=== PATIENT | male | born 1940 | race Caucasian/White ===

== ENCOUNTER 2019-08-18 12:49 | Inpatient (IN) ==
--- OUTSIDE RECORDS SUMMARY | 2019-08-18 12:52 | External Medical Summary | Continuity of Care Document ---
:1940 Author Name Deyvi Villa, Provider Address Unavailable Unavailable , Care Team Providers Name Role Phone Srinath Giron DO Unavailable [email or web address] Unavailable Unavailable Assessments Assessed Problems:Spider bite woundAftercare following surgery Problems Spider bite wound (989.5) (T63.301A) Aftercare following surgery (V58.89) (Z48.89) Abscess or cellulitis of chest wall (682.2) Spider bite (989.5) (T63.301A) Hypertension (401.9) (I10) Allergies and Adverse Reactions Vioxx (Allergy) Medications Lisinopril-hydroCHLOROthiazide 10-12.5 MG Oral Tablet; TAKE 1 TABLET DAILY. Start: 13-Nov-2017 Refills: 0 Aspirin Low Dose 81 MG Oral Tablet Delay ed Release; TAKE 1 TABLET DAILY DIRECTED. Start: 13-Nov-2017 Refills: 0 Multivitamin Adult Oral Tablet; TAKE 1 TABLET DAILY. Start: 13-Nov-2017 Refills: 0 Felodipine ER 5 MG Oral Tablet Extended Release 24 Hour; TAKE 1 TABLET ONCE DAILY. Start: 13-Nov-2017 Refills: 0 Procedures History of Knee Replacement Status: Comp leted History of skin debridement Status: Comp leted 13-Nov-2017 0:00 Immunizations Immunizations not documented Family History Mother Family history of malignant neoplasm (V16.9) (Z80.9) Status: Active Family history of diabetes mellitus (V18.0) (Z83.3) Status: Active Family history of cerebrovascular accident (CVA) (V17.1) (Z8 2.3) Status: Active Father Family history of cardiac disorder (V17.49) (Z82.49) Status: Active Social History - Smoking Status Never smoked tobacco Plan of Treatment Planned Observations Planned Goals not documented Results No Known Results Results not documented Encounters Appointment; Jeff Mcelroy M.D. 14-Nov-2017 13:30 Encounter Diagnosis: Problem not documented Appointment; Srinath Giron DO 13-Nov-2017 11:00 Encounter Diagnosis: Problem not documented Appointment; Srinath Giron, DO 20-Nov-2017 9:00 Encounter Diagnosis: Problem not documented
--- OUTSIDE RECORDS SUMMARY | 2019-08-18 12:52 | External Medical Summary | Continuity of Care Document ---
:1940 Author Name Deyvi Villa, Provider Address Unavailable Unavailable , Care Team Providers Name Role Phone Srinath Giron DO Unavailable [email or web address] OLSEN Unavailable Unavailable Assessments Assessed Problems:Spider bite woundAftercare following surgery Problems Hypertension (401.9) (I10) Spider bite (989.5) (T63.301A) Abscess or cellulitis of chest wall (682.2) Aftercare following surgery (V58.89) (Z48.89) Spider bite wound (989.5) (T63.301A) Allergies and Adverse Reactions Vioxx (Allergy) Medications [...]
--- NOTE | 2019-08-18 14:22 | Emergency Department Note ---
History of Present Illness General Chief complaint: Shortness of Breath/Dyspnea Stated complaint: DR MILIAN-FLUID IN LEGS AND SOB Time Seen by Provider: 08/18/19 13:53 Source: patient Mode of arrival: ambulatory Limitations: no limitations History of Present Illness Maximum Pain Intensity: 0 This patient comes in after being sent over from his doctor's office after having a new onset A. fib. He has had shortness of breath mostly dyspnea on exertion and bilateral lower extremity edema for the last week and a half. His doctor started on Lasix last Sunday he thinks it has caused some decrease in his leg swelling a little bit but still remains swollen. His breathing has gotten better. He has had no fall or trauma. No history of A. fib or CHF prior. No fever or chills or cough no COVID exposures or flulike symptoms. Home Medications Home Medications Medication Instructions Recorded Confirmed Type lisinopril-hydrochlorothiazide 1 tab PO DAILY #0 02/13/11 08/18/19 History albuterol sulfate 2 puff INHALATION Q4 PRN 08/18/19 08/18/19 History aspirin [Aspir-81] 81 mg PO DAILY 08/18/19 08/18/19 History felodipine 5 mg PO DAILY 08/18/19 08/18/19 History fluticasone propionate [Flovent 2 puff INHALATION BID 08/18/19 08/18/19 History HFA] furosemide [Lasix] 40 mg PO DAILY 08/18/19 08/18/19 History multivitamin 1 tab PO DAILY 08/18/19 08/18/19 History Allergies Allergy/AdvReac Type Severity Reaction Status Date / Time rofecoxib Allergy Unknown Unknown Verified 08/18/19 15:49 Past Med/Surg History Medical History Asthma (Chronic) Bronchitis (Resolved) Cellulitis of chest wall (Acute) Failure of outpatient treatment (Acute) HTN (hypertension) (Chronic) Family History Other No pertinent family history Social History Preferred Language: Portuguese Communication Ability: Effective Installation Manager Required: No Beliefs That Will Affect Care: None Current Living Situation: Spouse Feels Safe at Home: Yes Smoking Status: Former smoker Second Hand Exposure: No ; Hx Alcohol Use: No Hx Substance Use: No Review of Systems A total of 10 systems reviewed and were otherwise negative Physical Exam Vital Signs Vital Signs - 24 hr 08/18/19 12:53 08/18/19 15:15 08/18/19 16:43 Temperature 36.7 C Temperature Source Oral Pulse Rate 83 78 Pulse Rate [Right Finger] 76 68 Pulse Rhythm Regular Pulse Strength Normal Respiratory Rate 18 16 20 Respiratory Effort / Characteristics Non-Labored Spontaneous Non-Labored Non-Labored Respiratory Depth Normal Normal Normal Respiratory Pattern Regular Blood Pressure 146/73 H Blood Pressure [Right Arm] 141/94 H 157/86 H Blood Pressure Mean 97 Blood Pressure Mean [Right Arm] 109 109 Blood Pressure Position Sitting Pulse Oximetry 95 95 96 Oxygen Delivery Method Room Air Room Air Room Air Sepsis Recent Fever Within 48 Hours No Sepsis New/Unexplained Change in Mental Status No Sepsis Action Taken by Nursing No Action Required General: Well developed well nourished older male who appears in no acute distress, breathing comfortably on room air. Normal speech HEENT: Normal cephalic atraumatic. Pupils are equal round and reactive to light. Extraocular movements are intact. Oropharynx is pink with moist mucous membranes. No swelling of the mouth lips or tongue. Neck: Supple with a midline trachea. No meningeal signs or stiffness, no JVD or bruits. No Stridor. Chest: Clear to auscultation bilaterally. No wheezes or rhonchi. No increased work of breathing. Heart: Irregular regular rate and rhythm without murmurs or gallops. Not tach ycardic. Abdomen: Soft nontender, nondistended without rebound guarding or rigidity. Extremities: No cyanosis clubbing or edema. No calf tenderness or assymetry Spine/Back. Non tender to palpation. No CVA tenderness Skin: Good turgor without rashes. Neurologic exam: Cranial nerves two through 12 are intact. Motor and sensation are intact and symmetrical throughout. Course Administered Medications Discontinued Medications Furosemide (Lasix) 20 mg IV NOW STA Stop: 08/18/19 16:46 Last Admin: 08/18/19 18:14 Dose: 20 mg Documented by: [id number] Medical Decision Making Differential Diagnosis CHF, A. fib, acute coronary syndrome, electrolyte or metabolic abnormality, pulmonary disease Medical Records Attestation: I reviewed the patient's medical records. Home Medications Current Medication List: was personally reviewed by me Laboratory Data Attestation: I reviewed the patient's lab results. Result diagrams: 08/18/19 15:20 08/18/19 15:20 Lab Results 08/18/19 08/18/19 08/18/19 Range/Units 15:20 15:20 15:20 WBC 8.96 (4.8-10.8) K/uL RBC 5.11 (4.7-6.1) M/uL Hgb 15.9 (14.0-18.0) g/dL Hct 46.0 (42-52) % MCV 90.0 (80-100) fL MCH 31.1 (25-34) pg MCHC 34.6 (32-36) g/dL RDW Std Deviation 45.4 (36.4-46.3) fL RDW Coeff of Keanu 13.8 (11.5-14.5) % Plt Count 208 (130-400) K/uL MPV 10.0 (7.4-10.4) fL Immature Gran % (Auto) 0.6 % Neut % (Auto) 65.8 % Lymph % (Auto) 21.5 % Clinch % (Auto) 10.9 % Eos % (Auto) 1.0 % Baso % (Auto) 0.2 % Immature Gran # (Auto) 0.05 H (0.00-0.02) K/uL Neut # (Auto) 5.89 (1.4-6.5) K/uL Lymph # (Auto) 1.93 (1.2-3.4) K/uL Clinch # (Auto) 0.98 H (0.11-0.59) K/uL Eos # (Auto) 0.09 (0-0.5) K/uL Baso # (Auto) 0.02 (0-0.2) K/uL PT 11.4 (9.0-12.0) Seconds INR 1.1 (0.9-1.1) APTT 30.0 (21.0-31.0) Seconds PTT Ratio 1.1 Sodium 141 (136-145) mmol/L Potassium 3.8 (3.5-5.1) mmol/L Chloride 105 (98-107) mmol/L Carbon Dioxide 30 (21-32) mmol/L Anion Gap 6.0 (3-11) BUN 9 (7-18) mg/dl Creatinine 0.79 (0.6-1.4) mg/dl Est Cr Clr Drug Dosing 112.4 ml/min Est GFR ( Amer) 100.4 Est GFR (Non-Af Amer) 86.6 BUN/Creatinine Ratio 11.2 (10-20) Glucose 97 (70-99) mg/dl Calcium 8.9 (8.5-10.1) mg/dl Total Bilirubin 0.8 (0.2-1) mg/dl AST 16 (15-37) U/L ALT 36 (12-78) U/L Alkaline Phosphatase 109 (45-117) U/L Troponin I < 0.015 (0-0.045) ng/ml NT-Pro-B Natriuret Pep 392 (0-1800) pg/ml Total Protein 7.6 (6.4-8.2) gm/dl Albumin 3.7 (3.4-5.0) gm/dl Globulin 3.9 (2.5-4.0) gm/dl Albumin/Globulin Ratio 0.9 (0.9-2) Lipase 80 (73-393) U/L Imaging Data Attestation: I personally reviewed and interpreted this imaging study as fol lows: My Impression: Chest x-ray: Cardiomegaly without overt CHF. ECG Data Attestation: I personally reviewed and interpreted this ECG as follows: Indication: + SOB/dyspnea Rate (beats per minute): 92 Rhythm: + atrial fibrillation ECG Intervals/blocks: + Right Bundle branch block ECG Lynn: + Left axis deviation ECG ST segments: + Nonspecific ST abnormalities Comparison [facility]: [facility] Change: no significant change MDM Narrative This patient comes in scribed above. He has new onset A. fib and lower extremity edema/CHF. He was placed on a lead generation representative and before. IV access was established. EKG and chest x-ray was obtained. Extensive work-up was obtained. He was reassessed frequently. EKG shows a rate controlled A. fib. His initial troponin is negative. Chest x-ray shows cardiomegaly without overt CHF. He has no significant lecture light or metabolic abnormalities. He was given Lasix 20 mg IV. He is asymptomatic sitting here in the ER. Given his new onset A. fib and CHF I do think he needs to be admitted/observe for further inpatient treatment evaluation for cardiac disease. I have consulted the [facility] hospitalist to see him in the ER for these measures. Continuous cardiac monitoring: Due to the patient's new onset A. fib as well as CHF,he was placed on continuous lead generation representative. An order was placed in the computer. He was noted to be in A. fib with a rate controlled rate of 83 initially. Impression & Plan Atrial fibrillation, Bilateral edema of lower extremity, CHAVARRIA (dyspnea on exertion), HTN (hypertension) Discharge Plan Visit Data *Final* Discharge Date/Time: 08/18/19 19:09 Chief Complaint: Shortness of Breath/Dyspnea Stated Complaint: DR REF-FLUID IN LEGS AND SOB ED Provider: Israel Bhakta Discharge Problem: Atrial fibrillation, Bilateral edema of lower extremity, CHAVARRIA (dyspnea on exertion), HTN (hypertension) Patient Disposition: Admitted As Inpatient Discharge Instructions Interventions: ED Discharge Assessment Last Done: 08/18/19 19:09 Discharge Problem: Atrial fibrillation Qualifiers: Atrial fibrillation type: unspecified Qualified Code(s): I48.91 - Unspecified atrial fibrillation HTN (hypertension) Qualifiers: Hypertension type: unspecified Qualified Code(s): I10 - Essential (primary) hypertension
--- NOTE | 2019-08-18 15:34 | Electrocardiogram Report ---
Test Reason : Blood Pressure : / mmHG Vent. Rate : 092 BPM Atrial Rate : 060 BPM P-R Int : 000 ms QRS Dur : 152 ms QT Int : 408 ms P-R-T Axes : 000 -79 057 degrees QTc Int : 504 ms Atrial fibrillation Right bundle branch block Left anterior fascicular block Bifascicular block Cannot rule out Inferior infarct Abnormal ECG When compared with ECG of 13-FEB-2011 09:56, Atrial fibrillation has replaced Sinus rhythm Right bundle branch block is now Present Confirmed by Charan Tavraes ([id number]) on 08/18/2019 3:33:34 PM Referred By: Mitchell Nichols Confirmed By:Harvinder Tavares
[2019-08-18 15:36] LABS: Basophils # (auto) 0.02 K/uL (0-0.2); Basophils % (auto) 0.2 %; Eosinophils # (auto) 0.09 K/uL (0-0.5); Hemoglobin 15.9 g/dL (14.0-18.0); Immature Granulocytes # (auto) 0.05 K/uL (0.00-0.02); Immature Granulocytes % (auto) 0.6 %; Lymphocytes # (auto) 1.93 K/uL (1.2-3.4); Lymphocytes % (auto) 21.5 %; Mean Corpuscular Hemoglobin 31.1 pg (25-34); Mean Corpuscular Hgb Conc 34.6 g/dL (32-36); Monocytes # (auto) 0.98 K/uL (0.11-0.59); Monocytes % (auto) 10.9 %; Neutrophils # (auto) 5.89 K/uL (1.4-6.5); Neutrophils % (auto) 65.8 %; Platelet Count 208 K/uL (130-400); RDW Coefficient of Variation 13.8 % (11.5-14.5); RDW Standard Deviation 45.4 fL (36.4-46.3); Red Blood Count 5.11 M/uL (4.7-6.1); White Blood Count 8.96 K/uL (4.8-10.8)
[2019-08-18 15:49] LABS: INR 1.1 (0.9-1.1); Partial Thromboplastin Ratio 1.1; Prothrombin Time 11.4 Seconds (9.0-12.0)
[2019-08-18 15:53] LABS: Alanine Aminotransferase 36 U/L (12-78); Albumin Level 3.7 gm/dl (3.4-5.0); Aspartate Aminotransferase 16 U/L (15-37); BUN Creatinine Ratio 11.2 (10-20); Blood Urea Nitrogen 9 mg/dl (7-18); Calcium 8.9 mg/dl (8.5-10.1); Carbon Dioxide 30 mmol/L (21-32); Chloride 105 mmol/L (98-107); Creatinine Clr Calc Pharmacy 112.4 ml/min; Est GFR (African American) 100.4; Est GFR (Non-African American) 86.6; Glucose 97 mg/dl (70-99); Lipase 80 U/L (73-393); Potassium 3.8 mmol/L (3.5-5.1); Sodium 141 mmol/L (136-145)
[2019-08-18 15:58] LABS: Albumin Globulin Ratio 0.9 (0.9-2); Alkaline Phosphatase 109 U/L (45-117); Bilirubin,Total 0.8 mg/dl (0.2-1); Globulin 3.9 gm/dl (2.5-4.0); NT Pro B Type Natriuretic Pept 392 pg/ml (0-1800); Total Protein 7.6 gm/dl (6.4-8.2); Troponin I < 0.015 ng/ml (0-0.045)
--- NOTE | 2019-08-18 16:26 | XRay Report ---
SINGLE VIEW CHEST CLINICAL HISTORY: Atypical chest pain. FINDINGS: 2 AP, portable, upright chest radiographs are compared to study dated 11/04/2017. The examina tion is degraded by portable technique and patient rotation. The heart is enlarged noting atheroscler otic calcification of the thoracic aorta. There is prominence of the central pulmonary vessels. Scarr ing/atelectasis is noted at the lung bases. No airspace consolidation or large pleural effusion is id entified. No pneumothorax is seen. The skeletal structures are osteopenic. The bony thorax is grossly intact. IMPRESSION: 1. Cardiomegaly with prominence of the central pulmonary vessels. Correlate clinically for evidence o f mild congestion. 2. No airspace consolidation or large pleural effusion is identified. ACT 112: Negative or not required by law. Electronically signed by: Дмитрий Browne M.D. 08/18/2019 3:13 PM
[2019-08-18] MEDS ORDERED: FUROSEMIDE 40 MG/4 ML VIAL IV STA (16:45)
--- NOTE | 2019-08-18 18:27 | History & Physical Report ---
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 Start heparin drip for now. N.p.o. past midnight for cardiology evaluation and possible cardioversion if needed Get A1c and lipid panel Get TSH Get 2D Echo (3) HTN (hypertension): Continue home lisinopril for now Blood pressures currently controlled Monitor (4) COPD (chronic obstructive pulmonary disease): Stable. Continue inhalers. Next (5) DVT prophylaxis: On heparin drip as noted above. Neck History of Present Illness 79-year-old man with history of hypertension, dyslipidemia, obesity, COPD who presented with shortness of breath and leg swelling for over 1 week. Was initially seen in PCPs office on 08/13/2019 and treated for bronchitis and also started on Lasix 20 mg daily. Patient was reevaluated by PCP today, still had leg swelling and was noted to have A. fib on EKG and was sent to the ER for further evaluation. Patient reports dry cough, dyspnea on exertion. Denies any chest pain, orthopnea, PND Reports the leg swelling has been worsening. Denies any abdominal distention, pain or easy satiety Denies any fevers, chills, nausea vomiting On presentation to the ER, blood pressure is 146/73, heart rate was 83. EKG showed atrial fibrillation, rate controlled. Primary Care Provider: Mitchell Nichols DO Allergies Allergy/AdvReac Type Severity Reaction Status Date / Time rofecoxib Allergy Unknown Unknown Verified 08/18/19 15:49 Home Medications Home Medications Medication Instructions Recorded Confirmed Type lisinopril-hydrochlorothiazide 1 tab PO DAILY #0 02/13/11 08/18/19 History albuterol sulfate 2 puff INHALATION Q4 PRN 08/18/19 08/18/19 History aspirin [Aspir-81] 81 mg PO DAILY 08/18/19 08/18/19 History felodipine 5 mg PO DAILY 08/18/19 08/18/19 History fluticasone propionate [Flovent 2 puff INHALATION BID 08/18/19 08/18/19 History HFA] furosemide [Lasix] 40 mg PO DAILY 08/18/19 08/18/19 History multivitamin 1 tab PO DAILY 08/18/19 08/18/19 History Past Med/Surg History Medical History Asthma (Chronic) Bronchitis (Resolved) Cellulitis of chest wall (Acute) Failure of outpatient treatment (Acute) HTN (hypertension) (Chronic) Family History Other No pertinent family history Social History Preferred Language: Kyrgyz Communication Ability: Effective Adjunct Nursing Faculty Required: No Beliefs That Will Affect Care: None Current Living Situation: Spouse Feels Safe at Home: Yes Smoking Status: Former smoker Second Hand Exposure: No ; Hx Alcohol Use: No Hx Substance Use: No Review of Systems Constitutional: no fever, no chills and no body aches Eyes: no problem reported Ear, Nose, Mouth, Throat: no problem reported Respiratory: + cough, + dyspnea and + dyspnea on exertion Cardiovascular: + dyspnea and + dyspnea on exertion; no chest pain, no orthopnea and no palpitations Gastrointestinal: no problem reported Genitourinary: no problem reported Musculoskeletal: Leg swellling Neurologic: no problem reported Psychiatric: no problem reported Physical Exam Physical Exam: General: Obese, no acute distress Eyes: PERRL, conjunctivae normal, not pale, anicteric sclerae, EOM intact bilaterally ENMT: External ear and nose normal, oropharynx normal Respiratory: Normal respiratory effort, no respiratory distress, lungs clear to auscultation, no crackles and no wheezes Cardiovascular: Pulse is irregular, S1 -2, ++bilateral pedal edemaa Chest (Breasts): Chest: normal inspection of chest Gastrointestinal (Abdomen): Abdomen is not distended, soft, non-tender to palpation, no guarding, no palpable hepatosplenomegaly, normal bowel sounds Musculoskeletal: No cyanosis or clubbing Neurologic: Alert and oriented x 3, No focal weakness, sensation grossly intact Psychiatric: Euthymic affect Results & Data Results & Data ([facility]) Vital Signs (Past 12 Hours) Vital Signs Temp Pulse Pulse Resp BP BP Pulse Ox 08/18/19 16:43 68 20 157/86 H 96 08/18/19 15:15 78 76 16 141/94 H 95 08/18/19 12:53 36.7 C 83 18 146/73 H 95 Laboratory Results Short CBC 08/18/19 Range/Units 15:20 WBC 8.96 (4.8-10.8) K/uL Hgb 15.9 (14.0-18.0) g/dL Hct 46.0 (42-52) % Plt Count 208 (130-400) K/uL BMP 08/18/19 15:20 Sodium 141 Potassium 3.8 Chloride 105 Carbon Dioxide 30 BUN 9 Creatinine 0.79 Glucose 97 Calcium 8.9 Cardiac Enzymes 08/18/19 Range/Units 15:20 Troponin I < 0.015 (0-0.045) ng/ml Liver Function 08/18/19 Range/Units 15:20 Total Bilirubin 0.8 (0.2-1) mg/dl AST 16 (15-37) U/L ALT 36 (12-78) U/L Alkaline Phosphatase 109 (45-117) U/L Albumin 3.7 (3.4-5.0) gm/dl Diagnostic Findings Chest XR FINDINGS: 2 AP, portable, upright chest radiographs are compared to study dated 11/04/2017. The examination is degraded by portable technique and patient rotati on. The heart is enlarged noting atherosclerotic calcification of the thoracic aorta. There is prominence of the central pulmonary vessels. Scarring/atelectasis is noted at the lung bases. No airspace consolidation or large pleural effusion is identified. No pneumothorax is seen. The skeletal structures are osteopenic. The bony thorax is grossly intact. IMPRESSION: 1. Cardiomegaly with prominence of the central pulmonary vessels. Correlate clinically for evidence of mild congestion. 2. No airspace consolidation or large pleural effusion is identified. (1) Atrial fibrillation Atrial fibrillation type: unspecified Qualified Code(s): I48.91 - Unspecified atrial fibrillation
[2019-08-18] MEDS ORDERED: HEPARIN SODIUM/DEXTROSE 25,000 UNITS/500 ML BAG IV SCH (20:46)
[2019-08-18] MEDS ORDERED: ALBUTEROL HFA 8 GM INHALER INH PRN (20:46)
[2019-08-18] MEDS ORDERED: ACETAMINOPHEN 325 MG TAB PO PRN (20:46)
[2019-08-18] MEDS ORDERED: Heparin IV Low Dose WITH Bolus IV SCH (21:14)
[2019-08-18 21:28] LABS: INR 1.1 (0.9-1.1); Partial Thromboplastin Ratio 1.1; Partial Thromboplastin Time 30.5 Seconds (21.0-31.0); Prothrombin Time 11.5 Seconds (9.0-12.0)
[2019-08-18] MEDS ORDERED: HEPARIN IV BOLUS 4,000 UNITS in SYRINGE 0 ML IV ONE (21:30)
[2019-08-19 04:28] LABS: Hematocrit (blood only) 44.7 % (42-52); Hemoglobin 15.1 g/dL (14.0-18.0); Mean Corpuscular Hemoglobin 30.8 pg (25-34); Mean Corpuscular Hgb Conc 33.8 g/dL (32-36); Mean Corpuscular Volume 91.2 fL (80-100); Mean Platelet Volume 9.9 fL (7.4-10.4); Platelet Count 212 K/uL (130-400); RDW Coefficient of Variation 13.7 % (11.5-14.5); RDW Standard Deviation 45.3 fL (36.4-46.3); White Blood Count 7.87 K/uL (4.8-10.8)
[2019-08-19 04:39] LABS: Partial Thromboplastin Ratio 1.5; Partial Thromboplastin Time 41.6 Seconds (21.0-31.0)
[2019-08-19 04:52] LABS: BUN Creatinine Ratio 12.9 (10-20); Calcium 8.6 mg/dl (8.5-10.1); Est GFR (African American) 103.1; Potassium 3.3 mmol/L (3.5-5.1)
[2019-08-19] MEDS ORDERED: HEPARIN IV BOLUS 4,000 UNITS in SYRINGE 0 ML IV ONE (05:15)
[2019-08-19 06:13] LABS: Estimated Average Glucose 120 mg/dl; Hemoglobin A1C 5.8 % (4.5-5.6)
[2019-08-19] MEDS ORDERED: FUROSEMIDE 40 MG/4 ML VIAL IV SCH (09:00)
[2019-08-19] MEDS ORDERED: FUROSEMIDE 40 MG in SYRINGE 0 ML IV SCH (09:00)
[2019-08-19] MEDS ORDERED: lisinopriL 10 MG TAB PO SCH (09:00)
[2019-08-19] MEDS: ASPIRIN 81 MG ECTAB PO SCH (09:29)
[2019-08-19] MEDS: FELODIPINE 5 MG TABCR PO SCH (09:29)
[2019-08-19] MEDS: FLUTICASONE FUROATE 200MCG 14 PUFFS/INHALER INH SCH (09:30)
[2019-08-19] MEDS ORDERED: POTASSIUM CHLORIDE 20 MEQ TABCR PO ONE (11:00)
[2019-08-19] MEDS ORDERED: lisinopriL 10 MG TAB PO ONE (11:00)
[2019-08-19 12:14] LABS: Partial Thromboplastin Ratio 1.4; Partial Thromboplastin Time 38.4 Seconds (21.0-31.0)
--- NOTE | 2019-08-19 12:17 | Electrocardiogram Report ---
Test Reason : Blood Pressure : / mmHG Vent. Rate : 073 BPM Atrial Rate : 000 BPM P-R Int : 000 ms QRS Dur : 140 ms QT Int : 424 ms P-R-T Axes : 000 -71 025 degrees QTc Int : 467 ms Atrial fibrillation with premature ventricular or aberrantly conducted complexes Left axis deviation Right bundle branch block Inferior infarct (cited on or before 18-AUG-2019) Anterolateral infarct , age undetermined Abnormal ECG When compared with ECG of 18-AUG-2019 12:58, T wave inversion more evident in Anterolateral leads Confirmed by Charan Tavares ([id number]) on 08/19/2019 12:17:02 PM Referred By: Mitchell Nichols Confirmed By:Harvinder Tavares
--- NOTE | 2019-08-19 12:53 | Cardiology Consultation ---
Date of Consultation August 19, 2019 Assessment & Plan (1) Atrial fibrillation: Newly diagnosed Duration unknown Rates are controlled without AV timothy blocking agents. No significant pauses or bradycardia He seems asymptomatic in regards to afib. we discussed atrial fibrillation in detail, including Pathophysiology and treatment options along with stroke risks. Chads Vasc score of 3 (age, HTN, CHF) with 3.2% stroke risk per year. We discussed on going anticoagulation therapy and after 4 weeks of anticoagulation consideration of future DCCV if patient is having symptoms. WE discussed Coumadin vs DOAC. He is interested in Eliquis if affordable. After the consult, I verified that his outpatient cost would be approx $47 per month. If not affordable, likely will need Coumadin. (2) Acute on chronic diastolic HF (heart failure): His symptoms of SOB, edema now improved with IV lasix. hold AM dose until evaluated. Supplement potassium. Recheck AM labs. (3) HTN (hypertension): BP is uncontrolled on low dose lisinopril and felodipine. Will increase lisinpril to 20 mg. Monitor. Case discussed with Dr. Sood. Will follow. Supervising Physician Co-Signing Physician Notes Patient seen and examined with Cinthya Shannon PA-C. Agree with findings and assessment as above. New onset afib, asymptomatic and rate controlled. No contraindications to anticoagulation. After discussion, he would prefer Eliquis which Cinthya found will only cost $47 a month. Will then f/u as outpatient to determine fdc strategy of rate vs. rhythn control. General: Awake, alert and oriented x 3. No acute distress. HEENT: Normocephalic, atraumatic. Pupils equal, round and reactive to light and accommodation. Extraocular muscles are intact. Anicteric sclera. Moist mucous membranes. Neck: No JVD. No bruit. Cardiovascular: irregularly irregular, unable to appreciate murmur, rub or gallop. Pulmonary: Clear to auscultation bilaterally. No rales, rhonchi, or wheezing. Abdomen: Bowel sounds x 4, soft. No rebound, guarding or tenderness. No organomegaly. Extremities: No clubbing, cyanosis or edema. +2 pedal pulses bilaterally. Skin: Warm and dry. History of Present Illness Reason for Consultation: New onset atrial fibrillation; CHF Requesting Physician: Dr. Wahl Attending Physician: Dr. 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 Patient denies any specific cardiac history including diagnosis of coronary artery disease, prior MS, prior cardiac catheterization, history of arrhythmias, history of valvular disease/murmur, or history of CHF. He Had a prior exercise stress echo in 2016 which was negative for inducible ischemia and demonstrated a possible bicuspid aortic valve with aortic calcification and mild aortic stenosis otherwise preserved LV systolic function. Repeat echocardiogram in July 2018 demonstrated normal LV systolic function, aortic sclerosis without stenosis but the aortic valve was inadequately visualized to determine number of leaflets. Grade 2 diastolic dysfunction also noted with elevated pulmonary pressures at 36 mm Hg. Patient denies history of diabetes, history of stroke, history of vascular dis ease, history of GI bleed or anemia or need of transfusion, history of head trauma / intracranial hemorrhage. Approximately 1 week ago patient presented to PCP office with complaints of worsening shortness of breath possible COPD exacerbation with worsening lower extremity edema, possible CHF exacerbation. He was started on a Z-Akil for possible bronchitis / COPD exacerbation and started on low-dose Lasix to aid with volume status. EKG was not obtained at that visit. Yesterday, patient presented to PCP office once again for recheck and noted ongoing swelling in his lower extremities. he reported improvement in his dyspnea /shortness of breath since Z-Akil and Lasix. He also underwent EKG which demonstrated atrial fibrillation with a controlled ventricular response at 70 beats per minute, right bundle branch block, left anterior fascicular block. Atrial fibrillation was a new diagnosis. Due to his symptoms of edema and new onset atrial fibrillation, it was recommended he proceed [facility] emergency department for evaluation, treatment and admission. On arrival to the emergency department, EKG revealed rate controlled atrial fibrillation. He was started on IV furosemide. Troponin was negative on admission. Telemetry reviewed andrevealed atrial fibrillation with a controlled ventricular response. He is not taking any AV timothy blocking agents as an outpatient. He was started on IV heparin for anticoagulation therapy. He was admitted for further treatment and evaluation. At time of consult, patient resting in bed comfortably. He reports his lower extremity edema has greatly improved over the last 2 days. He notes significant diuresis in urine output over the last 24 hours particularly. He reports great improvement in his shortness of breath. He denies recent chest pain. He denies cough, fever or chills. He denies sense of palpitations or tachy palpitations. He is unaware of the onset of atrial fibrillation. He denies orthopnea, PND. He voices no complaints at this time. Allergies Allergy/AdvReac Type Severity Reaction Status Date / Time rofecoxib Allergy Unknown Unknown Verified 08/18/19 15:49 Home Medications Home Medications Medication Instructions Recorded Confirmed Type lisinopril-hydrochlorothiazide 1 tab PO DAILY #0 02/13/11 08/18/19 History albuterol sulfate 2 puff INHALATION Q4 PRN 08/18/19 08/18/19 History aspirin [Aspir-81] 81 mg PO DAILY 08/18/19 08/18/19 History felodipine 5 mg PO DAILY 08/18/19 08/18/19 History fluticasone propionate [Flovent 2 puff INHALATION BID 08/18/19 08/18/19 History HFA] furosemide [Lasix] 40 mg PO DAILY 08/18/19 08/18/19 History multivitamin 1 tab PO DAILY 08/18/19 08/18/19 History apixaban [Eliquis] 5 mg PO BID 30 Days #60 tab 08/19/19 Rx hydrochlorothiazide 12.5 mg PO DAILY #30 tab 08/19/19 Rx lisinopril 20 mg PO QAM 30 Days #30 tab 08/19/19 Rx Patient History Medical History Asthma (Chronic) Bronchitis (Resolved) Cellulitis of chest wall (Acute) Failure of outpatient treatment (Acute) HTN (hypertension) (Chronic) Family History Other No pertinent family history Social History Preferred Language: Maori Communication Ability: Effective Risk Manager Required: No Beliefs That Will Affect Care: None Current Living Situation: Spouse Other Information That Helps Us Care for You: No Feels Safe at Home: Yes Safety Concerns: Feels Safe At This Time Smoking Status: Never smoker Second Hand Exposure: No ; Hx Alcohol Use: No Hx Substance Use: No Review of Systems Review of Systems: All systems reviewed & are unremarkable except as noted in HPI & below Physical Exam Constitutional: WD/WN, vitals as above + obese; no acute distress and not ill appearing Neck: trachea midline, no thyromegaly Respiratory: normal respiratory effort, lungs clear to auscultation Cardiovascular: Rate/Rhythm: + irregularly irregular Heart Sounds: no murmur Vessels: no JVD Extremities: + edema ( 1+ pedal and pretibial edema bilaterally) Gastrointestinal (Abdomen): normal bowel sounds, soft, nontender, no hepatosplenomegaly Neurologic: PERRL, EOMI, accommodation nl, no face palsy, no dysarthria Psychiatric: A+Ox3, euthymic affect Results & Data ([facility]) Vital Signs (Past 12 Hours) Vital Signs Temp Pulse Pulse Resp BP Pulse Ox 08/19/19 11:58 36.4 C L 80 18 121/74 95 08/19/19 07:47 36.4 C L 63 18 165/90 H 96 08/19/19 03:24 36.4 C L 63 18 131/86 95 Laboratory Results 08/19/19 08/19/19 08/19/19 Range/Units 11:41 04:10 04:10 WBC (4.8-10.8) K/uL RBC (4.7-6.1) M/uL Hgb (14.0-18.0) g/dL Hct (42-52) % MCV (80-100) fL MCH (25-34) pg MCHC (32-36) g/dL RDW Std Deviation (36.4-46.3) fL RDW Coeff of Keanu (11.5-14.5) % Plt Count (130-400) K/uL MPV (7.4-10.4) fL Immature Gran % (Auto) % Neut % (Auto) % Lymph % (Auto) % [place] % (Auto) % Eos % (Auto) % Baso % (Auto) % Immature Gran # (Auto) (0.00-0.02) K/uL Neut # (Auto) (1.4-6.5) K/uL Lymph # (Auto) (1.2-3.4) K/uL [place] # (Auto) (0.11-0.59) K/uL Eos # (Auto) (0-0.5) K/uL Baso # (Auto) (0-0.2) K/uL PT (9.0-12.0) Seconds INR (0.9-1.1) APTT 38.4 H (21.0-31.0) Seconds PTT Ratio 1.4 Sodium 140 (136-145) mmol/L Potassium 3.3 L (3.5-5.1) mmol/L Chloride 106 (98-107) mmol/L Carbon Dioxide 29 (21-32) mmol/L Anion Gap 5.0 (3-11) BUN 10 (7-18) mg/dl Creatinine 0.74 (0.6-1.4) mg/dl Est Cr Clr Drug Dosing 120.0 ml/min Est GFR ( Amer) 103.1 Est GFR (Non-Af Amer) 89.0 BUN/Creatinine Ratio 12.9 (10-20) Glucose 103 H (70-99) mg/dl Estimat Average Glucose 120 mg/dl Hemoglobin A1c 5.8 H (4.5-5.6) % Calcium 8.6 (8.5-10.1) mg/dl Phosphorus 4.0 (2.5-4.9) mg/dl Magnesium 2.0 (1.8-2.4) mg/dl Total Bilirubin (0.2-1) mg/dl AST (15-37) U/L ALT (12-78) U/L Alkaline Phosphatase (45-117) U/L Troponin I (0-0.045) ng/ml NT-Pro-B Natriuret Pep (0-1800) pg/ml Total Protein (6.4-8.2) gm/dl Albumin (3.4-5.0) gm/dl Globulin (2.5-4.0) gm/dl Albumin/Globulin Ratio (0.9-2) Triglycerides 96 (0-150) mg/dl Cholesterol 160 (0-200) mg/dl LDL Cholesterol, Calc 102 mg/dl VLDL Cholesterol, Calc 19 mg/dl HDL Cholesterol 39 mg/dl Cholesterol/HDL Ratio 4 Lipase (73-393) U/L TSH (0.300-4.500) uIu/ml 08/19/19 08/19/19 08/18/19 Range/Units 04:10 04:10 21:06 WBC 7.87 (4.8-10.8) K/uL RBC 4.90 (4.7-6.1) M/uL Hgb 15.1 (14.0-18.0) g/dL Hct 44.7 (42-52) % MCV 91.2 (80-100) fL MCH 30.8 (25-34) pg MCHC 33.8 (32-36) g/dL RDW Std Deviation 45.3 (36.4-46.3) fL RDW Coeff of Keanu 13.7 (11.5-14.5) % Plt Count 212 (130-400) K/uL MPV 9.9 (7.4-10.4) fL Immature Gran % (Auto) % Neut % (Auto) % Lymph % (Auto) % [place] % (Auto) % Eos % (Auto) % Baso % (Auto) % Immature Gran # (Auto) (0.00-0.02) K/uL Neut # (Auto) (1.4-6.5) K/uL Lymph # (Auto) (1.2-3.4) K/uL [place] # (Auto) (0.11-0.59) K/uL Eos # (Auto) (0-0.5) K/uL Baso # (Auto) (0-0.2) K/uL PT (9.0-12.0) Seconds INR (0.9-1.1) APTT 41.6 H (21.0-31.0) Seconds PTT Ratio 1.5 Sodium (136-145) mmol/L Potassium (3.5-5.1) mmol/L Chloride (98-107) mmol/L Carbon Dioxide (21-32) mmol/L Anion Gap (3-11) BUN (7-18) mg/dl Creatinine (0.6-1.4) mg/dl Est Cr Clr Drug Dosing ml/min Est GFR ( Amer) Est GFR (Non-Af Amer) BUN/Creatinine Ratio (10-20) Glucose (70-99) mg/dl Estimat Average Glucose mg/dl Hemoglobin A1c (4.5-5.6) % Calcium (8.5-10.1) mg/dl Phosphorus (2.5-4.9) mg/dl Magnesium (1.8-2.4) mg/dl Total Bilirubin (0.2-1) mg/dl AST (15-37) U/L ALT (12-78) U/L Alkaline Phosphatase (45-117) U/L Troponin I (0-0.045) ng/ml NT-Pro-B Natriuret Pep (0-1800) pg/ml Total Protein (6.4-8.2) gm/dl Albumin (3.4-5.0) gm/dl Globulin (2.5-4.0) gm/dl Albumin/Globulin Ratio (0.9-2) Triglycerides (0-150) mg/dl Cholesterol (0-200) mg/dl LDL Cholesterol, Calc mg/dl VLDL Cholesterol, Calc mg/dl HDL Cholesterol mg/dl Cholesterol/HDL Ratio Lipase (73-393) U/L TSH 1.740 (0.300-4.500) uIu/ml 08/18/19 08/18/19 08/18/19 Range/Units 21:06 15:20 15:20 WBC (4.8-10.8) K/uL RBC (4.7-6.1) M/uL Hgb (14.0-18.0) g/dL Hct (42-52) % MCV (80-100) fL MCH (25-34) pg MCHC (32-36) g/dL RDW Std Deviation (36.4-46.3) fL RDW Coeff of Keanu (11.5-14.5) % Plt Count (130-400) K/uL MPV (7.4-10.4) fL Immature Gran % (Auto) % Neut % (Auto) % Lymph % (Auto) % [place] % (Auto) % Eos % (Auto) % Baso % (Auto) % Immature Gran # (Auto) (0.00-0.02) K/uL Neut # (Auto) (1.4-6.5) K/uL Lymph # (Auto) (1.2-3.4) K/uL [place] # (Auto) (0.11-0.59) K/uL Eos # (Auto) (0-0.5) K/uL Baso # (Auto) (0-0.2) K/uL PT 11.5 11.4 (9.0-12.0) Seconds INR 1.1 1.1 (0.9-1.1) APTT 30.5 30.0 (21.0-31.0) Seconds PTT Ratio 1.1 1.1 Sodium 141 (136-145) mmol/L Potassium 3.8 (3.5-5.1) mmol/L Chloride 105 (98-107) mmol/L Carbon Dioxide 30 (21-32) mmol/L Anion Gap 6.0 (3-11) BUN 9 (7-18) mg/dl Creatinine 0.79 (0.6-1.4) mg/dl Est Cr Clr Drug Dosing 112.4 ml/min Est GFR ( Amer) 100.4 Est GFR (Non-Af Amer) 86.6 BUN/Creatinine Ratio 11.2 (10-20) Glucose 97 (70-99) mg/dl Estimat Average Glucose mg/dl Hemoglobin A1c (4.5-5.6) % Calcium 8.9 (8.5-10.1) mg/dl Phosphorus (2.5-4.9) mg/dl Magnesium (1.8-2.4) mg/dl Total Bilirubin 0.8 (0.2-1) mg/dl AST 16 (15-37) U/L ALT 36 (12-78) U/L Alkaline Phosphatase 109 (45-117) U/L Troponin I < 0.015 (0-0.045) ng/ml NT-Pro-B Natriuret Pep 392 (0-1800) pg/ml Total Protein 7.6 (6.4-8.2) gm/dl Albumin 3.7 (3.4-5.0) gm/dl Globulin 3.9 (2.5-4.0) gm/dl Albumin/Globulin Ratio 0.9 (0.9-2) Triglycerides (0-150) mg/dl Cholesterol (0-200) mg/dl LDL Cholesterol, Calc mg/dl VLDL Cholesterol, Calc mg/dl HDL Cholesterol mg/dl Cholesterol/HDL Ratio Lipase 80 (73-393) U/L TSH (0.300-4.500) uIu/ml 20 Range/Units 15:20 WBC 8.96 (4.8-10.8) K/uL RBC 5.11 (4.7-6.1) M/uL Hgb 15.9 (14.0-18.0) g/dL Hct 46.0 (42-52) % MCV 90.0 (80-100) fL MCH 31.1 (25-34) pg MCHC 34.6 (32-36) g/dL RDW Std Deviation 45.4 (36.4-46.3) fL RDW Coeff of Keanu 13.8 (11.5-14.5) % Plt Count 208 (130-400) K/uL MPV 10.0 (7.4-10.4) fL Immature Gran % (Auto) 0.6 % Neut % (Auto) 65.8 % Lymph % (Auto) 21.5 % [place] % (Auto) 10.9 % Eos % (Auto) 1.0 % Baso % (Auto) 0.2 % Immature Gran # (Auto) 0.05 H (0.00-0.02) K/uL Neut # (Auto) 5.89 (1.4-6.5) K/uL Lymph # (Auto) 1.93 (1.2-3.4) K/uL [place] # (Auto) 0.98 H (0.11-0.59) K/uL Eos # (Auto) 0.09 (0-0.5) K/uL Baso # (Auto) 0.02 (0-0.2) K/uL PT (9.0-12.0) Seconds INR (0.9-1.1) APTT (21.0-31.0) Seconds PTT Ratio Sodium (136-145) mmol/L Potassium (3.5-5.1) mmol/L Chloride (98-107) mmol/L Carbon Dioxide (21-32) mmol/L Anion Gap (3-11) BUN (7-18) mg/dl Creatinine (0.6-1.4) mg/dl Est Cr Clr Drug Dosing ml/min Est GFR ( Amer) Est GFR (Non-Af Amer) BUN/Creatinine Ratio (10-20) Glucose (70-99) mg/dl Estimat Average Glucose mg/dl Hemoglobin A1c (4.5-5.6) % Calcium (8.5-10.1) mg/dl Phosphorus (2.5-4.9) mg/dl Magnesium (1.8-2.4) mg/dl Total Bilirubin (0.2-1) mg/dl AST (15-37) U/L ALT (12-78) U/L Alkaline Phosphatase (45-117) U/L Troponin I (0-0.045) ng/ml NT-Pro-B Natriuret Pep (0-1800) pg/ml Total Protein (6.4-8.2) gm/dl Albumin (3.4-5.0) gm/dl Globulin (2.5-4.0) gm/dl Albumin/Globulin Ratio (0.9-2) Triglycerides (0-150) mg/dl Cholesterol (0-200) mg/dl LDL Cholesterol, Calc mg/dl VLDL Cholesterol, Calc mg/dl HDL Cholesterol mg/dl Cholesterol/HDL Ratio Lipase (73-393) U/L TSH (0.300-4.500) uIu/ml Diagnostic Findings chest x-ray on admission report reviewed: IMPRESSION: 1. Cardiomegaly with prominence of the central pulmonary vessels. Correlate clinically for evidence of mild congestion. 2. No airspace consolidation or large pleural effusion is identified Telemetry reviewed: Persistent atrial fibrillation with controlled ventricular rates 60-70 beats per minute. EKG on admission: Atrial fibrillation Right bundle branch block Left anterior fascicular block Bifascicular block Cannot rule out Inferior infarct 2D echocardiogram report reviewed dated 08/18 2020: Normal LV chamber size with moderate concentric LVH. Normal LV systolic function with ejection fraction 50-55%. Abnormal septal wall motion consistent with interventricular conduction delay otherwise no segmental left ventricular wall motion abnormalities are noted. Grade 2 diastolic dysfunction. Aortic valve sclerosis moderate, without significant aortic valvular stenosis. Moderate left atrial enlargement. Medications Administered Current Inpatient Medications Acetaminophen (Tylenol) 650 mg PO Q4H PRN PRN Reason: Pain or Fever Stop: 09/17/19 20:45 Albuterol (Ventolin Hfa) 2 puffs INH Q4 PRN; Protocol PRN Reason: Shortness Of Breath Stop: 09/17/19 20:45 Aspirin (Ecotrin Ectab) 81 mg PO DAILY SUJIT Stop: 09/18/19 08:59 Last Admin: 08/19/19 09:29 Dose: 81 mg Documented by: Felodipine (Plendil) 5 mg PO DAILY SUJIT Stop: 09/18/19 08:59 Last Admin: 08/19/19 09:29 Dose: 5 mg Documented by: Fluticasone Furoate (Arnuity Ellipta 200mcg) 1 puffs INH DAILY SUJIT Stop: 09/18/19 08:59 Last Admin: 08/19/19 09:30 Dose: 1 puffs Documented by: Furosemide 40 mg/ Syringe 4 mls @ 4 mls/min IV DAILY SUJIT Stop: 09/18/19 08:59 Last Admin: 08/19/19 09:29 Dose: 4 mls/min Documented by: Heparin Sodium/Dextrose (Heparin Sodium/Dextrose) 25,000 units in 500 mls @ 26 mls/hr IV .[id number] SUJIT; Protocol Stop: 09/17/19 20:45 Last Titration: 08/19/19 13:05 Dose: 1,300 units/hr, 26 mls/hr Documented by: Lisinopril (Zestril) 20 mg PO QAM SUJIT Stop: 09/19/19 08:59 (1) Atrial fibrillation Atrial fibrillation type: unspecified Qualified Code(s): I48.91 - Unspecified atrial fibrillation (2) HTN (hypertension) Hypertension type: unspecified Qualified Code(s): I10 - Essential (primary) hypertension
[2019-08-19] MEDS ORDERED: HEPARIN IV BOLUS 4,500 UNITS in SYRINGE 0 ML IV ONE (13:30)
--- NOTE | 2019-08-19 16:30 | Hospitalist Progress Note ---
Date of Service August 19, 2019 Assessment & Plan (1) Acute on chronic diastolic HF (heart failure): HFpEF presented with SOB /CHAVARRIA ECHO shows ; preserved EF 55-60% with grade 2 diastolic dysfunction appreciate input from cardiology given IV Lasix , clinically improved no orthopnea , improved CHAVARRIA and lower ext soraya Lisinopril dose increased to 30 mg daily due to poorly controlled HTN monitor vol status pt is counselled regarding low salt diet Hypokalema: due to Lasix K replaced repeat lab in AM (2) Atrial fibrillation: new diagnosis rate controlled without any AV timothy blockade drug calculated [id number] score 3 needs chronic anticoagulation for stroke prophylaxis was started on IV hperin , D/yasir ordered for Eliqis , if remains in Afib per cardiology DC cardioversion will be considered after 4 weeks of anticoagulation (3) HTN (hypertension): BP elevated on Felodipine Lisinopril dose increased to 30 mg daily (4) COPD (chronic obstructive pulmonary disease): Stable. Continue inhalers. (5) DVT prophylaxis: Eliquis Full code DISPOSITION ; possible discharge home in next 1-2 days if remains medically stable Admission and Anticipated Discharge Date Admission Date: August 18, 2019 Subjective SOB , CHAVARRIA has improved no orthopnea improved lower ext edema no complain of chest pain or discomfort Review of Systems Review of Systems: All systems reviewed & are unremarkable except as noted in HPI & below Respiratory: no cough, no dyspnea and no dyspnea on exertion Physical Exam Constitutional: WD/WN, vitals as above + obese; no acute distress Eyes: PERRL, conjunctivae normal, anicteric sclerae ENMT: external ear and nose normal, oropharynx normal Neck: trachea midline, no thyromegaly Respiratory: normal respiratory effort; no respiratory distress and no cough Auscultation: + rales Cardiovascular: Rate/Rhythm: regular rate and regular rhythm Vessels: no JVD Extremities: + pedal edema Gastrointestinal (Abdomen): Percussion/Palpation: abdomen soft; abdomen nontender Musculoskeletal: no cyanosis or clubbing, extremities motor strength 5/5 Psychiatric: A+Ox3, euthymic affect Results & Data Results & Data ([facility]) Vital Signs (Past 12 Hours) Vital Signs Temp Pulse Pulse Resp BP Pulse Ox 08/19/19 15:42 36.5 C 73 18 121/75 95 08/19/19 11:58 36.4 C L 80 18 121/74 95 08/19/19 07:47 36.4 C L 63 18 165/90 H 96 (1) Atrial fibrillation Atrial fibrillation type: unspecified Qualified Code(s): I48.91 - Unspecified atrial fibrillation
[2019-08-19] MEDS: APIXABAN 5 MG TABLET PO SCH (18:15)
[2019-08-20 06:35] LABS: BUN Creatinine Ratio 13.8 (10-20); Calcium 8.5 mg/dl (8.5-10.1); Creatinine Clr Calc Pharmacy 105.7 ml/min; Est GFR (African American) 98.4; Est GFR (Non-African American) 84.9; Magnesium 2.1 mg/dl (1.8-2.4); Potassium 3.6 mmol/L (3.5-5.1)
[2019-08-20] MEDS ORDERED: lisinopriL 20 MG TAB PO SCH (09:00)
[2019-08-20] MEDS: FLUTICASONE FUROATE 200MCG 14 PUFFS/INHALER INH SCH (09:01)
[2019-08-20] MEDS: ASPIRIN 81 MG ECTAB PO SCH (09:01)
[2019-08-20] MEDS: FELODIPINE 5 MG TABCR PO SCH (09:01)
[2019-08-20] MEDS: APIXABAN 5 MG TABLET PO SCH (09:01)
--- NOTE | 2019-08-20 13:48 | Hospitalist Progress Note ---
Date of Service August 20, 2019 Assessment & Plan (1) Acute on chronic diastolic HF (heart failure): Present on admission with SOB and edema ECHO shows ; preserved EF 55-60% with grade 2 diastolic dysfunction Cardiology on board Received Lasix 40mg IV, Will transition to 40mg daily PO given IV Lasix , clinically improved Clinically improves Ok from cardiology standpoint to discharge home Follow up a low salt diet Check BMP in 1 week (2) Atrial fibrillation: New onset of Afib rate controlled without any AV timothy blockade drug calculated [id number] score 3 needs chronic anticoagulation for stroke prophylaxis Was started on IV heparin drip, then transition to eliquis PO if remains in Afib, Consider cardioversion in 4 weeks of anticoagulation as per Cardiology Follow up with cardiology in 2 to 4 weeks (3) HTN (hypertension): BP fluctuated Continue Felodipine Continue Lisinopril 20mg daily (4) Hypokalemia: Possible related to diuretic K 3.6 today Continue potassium supplement on discharge Continue monitor BMP (5) COPD (chronic obstructive pulmonary disease): Stable. Continue inhalers. (6) DVT prophylaxis: Eliquis Full code DISPOSITION Discharge home today Follow up with cardiology in 2 weeks Admission and Anticipated Discharge Date Admission Date: August 18, 2019 Subjective Pt was seen and examined Lying in bed with nod distress Pt said that he feels much better He said that his breather is better He has been walking in the hallway Denies any chest pain, palpitation, dizziness and SOB Physical Exam Physical Exam: General- No acute distress, +obese Head- atraumatic Eyes- PERRL, EOMI, ENT- oropharynx clear Neck- supple, no JVD Lungs- clear to auscultation Heart- regular rhythm; no murmur Abdomen- normal bowel sounds, soft, nontender Extremities- no calf tenderness, +edema Neuro- alert, oriented x 3; PERRL, EOMI; no facial palsy; no dysarthria Skin- warm & dry Results & Data Results & Data ([facility]) Vital Signs (Past 12 Hours) Vital Signs Temp Pulse Resp BP Pulse Ox 08/20/19 11:11 36.6 C 70 19 153/91 H 96 08/20/19 07:06 36.5 C 57 L 17 160/95 H 94 08/20/19 03:17 36.4 C L 62 19 138/87 96 (1) Atrial fibrillation Atrial fibrillation type: unspecified Qualified Code(s): I48.91 - Unspecified atrial fibrillation
--- NOTE | 2019-08-20 14:04 | Cardiology Progress Note ---
Date of Service August 20, 2019 Assessment & Plan (1) Atrial fibrillation: Newly diagnosed Duration unknown Rates are controlled without AV timothy blocking agents. No significant pauses or bradycardia He seems asymptomatic in regards to afib. we discussed atrial fibrillation in detail, including Pathophysiology and treatment options along with stroke risks. Chads Vasc score of 3 (age, HTN, CHF) with 3.2% stroke risk per year. We discussed on going anticoagulation therapy and after 4 weeks of anticoagulation consideration of future DCCV if patient is having symptoms. WE discussed Coumadin vs DOAC. He is interested in Eliquis if affordable. After the consult, I verified that his outpatient cost would be approx $47 per month. He is agreeable to Eliquis (2) Acute on chronic diastolic HF (heart failure): His symptoms of SOB, edema now improved with IV lasix. hold AM dose until evaluated. previously on lasix 20mg daily given that he is now in afib, will increase to 40mg po daily upon discharge (3) HTN (hypertension): cont current meds f/u with us in 2 to 4 weeks, my office will call to schedule. Okay to DC to home from a cardiac standpoint. Subjective Patient seen and examined, chart reviewed. States that he is feeling well. Denies any complaints overnight specifically denies any chest pain, shortness of breath, palpitations, lightheadedness, dizziness or syncope. States that lower extremity edema has significantly improved and overall he feels well. Telemetry reviewed: Atrial fibrillation rate controlled. Review of Systems Review of Systems: All systems reviewed & are unremarkable except as noted in HPI & below Physical Exam Physical Exam: General: Awake, alert and oriented x 3. No acute distress. HEENT: Normocephalic, atraumatic. Pupils equal, round and reactive to light and accommodation. Extraocular muscles are intact. Anicteric sclera. Moist mucous membranes. Neck: No JVD. No bruit. Cardiovascular: irregularly irregular, unable to appreciate murmur, rub or gallop. Pulmonary: Clear to auscultation bilaterally. No rales, rhonchi, or wheezing. Abdomen: Bowel sounds x 4, soft. No rebound, guarding or tenderness. No organomegaly. Extremities: No clubbing, cyanosis. trace b/l LE edema. +2 pedal pulses bilaterally. Skin: Warm and dry. Results & Data Vital Signs (Past 12 Hours) Vital Signs Temp Pulse Resp BP Pulse Ox 08/20/19 11:11 36.6 C 70 19 153/91 H 96 08/20/19 07:06 36.5 C 57 L 17 160/95 H 94 08/20/19 03:17 36.4 C L 62 19 138/87 96 (1) Atrial fibrillation Atrial fibrillation type: unspecified Qualified Code(s): I48.91 - Unspecified atrial fibrillation (2) HTN (hypertension) Hypertension type: unspecified Qualified Code(s): I10 - Essential (primary) hypertension
[2019-08-20] MEDS ORDERED: POTASSIUM CHLORIDE 20 MEQ TABCR PO STA (14:19)
--- NOTE | 2019-08-20 15:26 | Electrocardiogram Report ---
Test Reason : Blood Pressure : / mmHG Vent. 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
--- NOTE | 2019-08-22 09:07 | Discharge Summary ---
Date of Service August 20, 2019 Admission HPI Per Admitting Provider 79-year-old man with history of hypertension, dyslipidemia, obesity, COPD who presented with shortness of breath and leg swelling for over 1 week. Was initially seen in PCPs office on 08/13/2019 and treated for bronchitis and also started on Lasix 20 mg daily. Patient was reevaluated by PCP today, still had leg swelling and was noted to have A. fib on EKG and was sent to the ER for further evaluation. Patient reports dry cough, dyspnea on exertion. Denies any chest pain, orthopnea, PND Reports the leg swelling has been worsening. Denies any abdominal distention, pain or easy satiety Denies any fevers, chills, nausea vomiting On presentation to the ER, blood pressure is 146/73, heart rate was 83. EKG showed atrial fibrillation, rate controlled. Admission Exam Per Admitting Provider General: Obese, no acute distress Eyes: PERRL, conjunctivae normal, not pale, anicteric sclerae, EOM intact bilaterally ENMT: External ear and nose normal, oropharynx normal Respiratory: Normal respiratory effort, no respiratory distress, lungs clear to auscultation, no crackles and no wheezes Cardiovascular: Pulse is irregular, S1 -2, ++bilateral pedal edemaa Chest (Breasts): Chest: normal inspection of chest Gastrointestinal (Abdomen): Abdomen is not distended, soft, non-tender to palpation, no guarding, no palpable hepatosplenomegaly, normal bowel sounds Musculoskeletal: No cyanosis or clubbing Neurologic: Alert and oriented x 3, No focal weakness, sensation grossly intact Psychiatric: Euthymic affect Principal Diagnosis CHF WITH DIASTOLIC HEART FAILURE ATRIAL FIBRILLATION HYPOKALEMIA HYPERTENSION Discharge Exam General- No acute distress, +obese Head- atraumatic Eyes- PERRL, EOMI, ENT- oropharynx clear Neck- supple, no JVD Lungs- clear to auscultation Heart- regular rhythm; no murmur Abdomen- normal bowel sounds, soft, nontender Extremities- no calf tenderness, +edema Neuro- alert, oriented x 3; PERRL, EOMI; no facial palsy; no dysarthria Skin- warm & dry Discharge Data Allergies Allergy/AdvReac Type Severity Reaction Status Date / Time rofecoxib Allergy Unknown Unknown Verified 08/18/19 15:49 Consultations 08/18/19 14:22 ED Decision to Admit Stat 08/18/19 20:46 Consult Cardiology Routine Ordered Studies SINGLE VIEW CHEST CLINICAL HISTORY: Atypical chest pain. FINDINGS: 2 AP, portable, upright chest radiographs are compared to study dated 11/04/2017. The examination is degraded by portable technique and patient rotation. The heart is enlarged noting atherosclerotic calcification of the thoracic aorta. There is prominence of the central pulmonary vessels. Scarring/atelectasis is noted at the lung bases. No airspace consolidation or large pleural effusion is identified. No pneumothorax is seen. The skeletal structures are osteopenic. The bony thorax is grossly intact. IMPRESSION: 1. Cardiomegaly with prominence of the central pulmonary vessels. Correlate clinically for evidence of mild congestion. 2. No airspace consolidation or large pleural effusion is identified. ACT 112: Negative or not required by law. Electronically signed by: Дмитрий Browne M.D. 08/18/2019 3:13 PM Dictated: 08/18/19 1512 Transcribed: 08/18/19 1512 Hospital Course (1) Acute on chronic diastolic HF (heart failure): Present on admission with SOB and edema ECHO shows ; preserved EF 55-60% with grade 2 diastolic dysfunction Cardiology on board Received Lasix 40mg IV, Will transition to 40mg daily PO given IV Lasix , clinically improved Clinically improves Ok from cardiology standpoint to discharge home Follow up a low salt diet Check BMP in 1 week (2) Atrial fibrillation: New onset of Afib rate controlled without any AV timothy blockade drug calculated [id number] score 3 needs chronic anticoagulation for stroke prophylaxis Was started on IV heparin drip, then transition to eliquis PO if remains in Afib, Consider cardioversion in 4 weeks of anticoagulation as per Cardiology Follow up with cardiology in 2 to 4 weeks (3) HTN (hypertension): BP fluctuated Continue Felodipine Continue Lisinopril 20mg daily (4) Hypokalemia: Possible related to diuretic K 3.6 today Continue potassium supplement on discharge Continue monitor BMP (5) COPD (chronic obstructive pulmonary disease): Stable. Continue inhalers. (6) DVT prophylaxis: Eliquis Full code DISPOSITION Discharge home today Follow up with cardiology in 2 weeks Total Time Total Time Spent Total Time Spent (In Minutes): 35 minutes Total Time Includes: Examination of the Patient, Discharge Planning, Medication Reconciliation, Communication With Other Providers and Other Discharge Plan Discharge Items Patient Disposition: Home - Self-Care Reason For Visit: SOB Discharge Diagnosis: CHF WITH DIASTOLIC HEART FAILURE ATRIAL FIBRILLATION HYPOKALEMIA HYPERTENSION Activity: Resume your previous activity Non-emergency contact: Primary Care Provider Call non-emergency contact if: you have any medication questions Follow-up/Referrals: Mitchell Nichols DO [Primary Care Provider] - 08/26/19 11:20 am (08/26/2019 11:20 AM Provider Mitchell Nichols DO [facility] ) Diet: Heart Healthy and Low Sodium (2gm) Addtl Attending Provider Instructions: Follow up with your primary care provider Dr. Nichols on 08/25 @ 11:20 AM Follow up with cardiology dr. Sood (or his colleague) in 2 to 4 weeks Check BMP in 5 to 7 days to monitor your renal function and electrolytes Fall precaution Monitor your blood pressure Medication Instructions: Eliquis Your condition is typically treated with an anticoagulant. Anticoagulants will thin your blood to help prevent new clots. You should take her medication exactly as directed. Never skip a dose. Never take a double dose. If you miss a dose, take it as soon as you remember. Avoid NSAIDs (Motrin, Aleve, Naproxen, Ibuprofen, Advil, Meloxicam,..) due to risks of bleeding Call your Primary Care doctor if you experience any of the following: Swelling or Pain in your leg Sudden, continuous pain deep in a muscle Pain that worsens when you are active or when you stand still for a long time Chest Pain Sudden Shortness of Breath Rapid or pounding heart beat Fainting Dizziness Cough with blood or bloody sputum Sweating more than normal Bruises Heavy or uncontrolled bleeding Blood in your urine, stool or vomit Black or tarry stools Call your Primary Care doctor if any of the following symptoms or problems start or get worse: * Shortness of breath or difficulty breathing * Wake up at night short of breath * Chest pain * Cough * Swelling of your hands, feet, or legs * More fatigued or tired with your normal activity * Palpitations - sudden fast heart beats WEIGHT * Weigh yourself every morning after using the bathroom. * Use the same scale. * Wear the same amount of clothing. * Write your weight down on a chart. * Call your Primary Care doctor if you gain more than 2-3 pounds in 1-2 days. MEDICATIONS * Use this discharge instruction sheet for medication instructions. * Take your medications at the time your doctor ordered. * Do not skip a dose of your medicines. * If you miss a dose of medicine, take it as soon as possible, but DO NOT DOUBLE A DOSE. * Read your medicine information when you get home. * Know all of the side effects of your medicine. If in doubt, ask your pharmacist * Call your Primary Care doctor's office if you have any side effects. * Be sure all of your doctors know what medicine and herbs you take (including cold, flu, and herbal medicine). Take the following with you to your follow-up doctor appointments: * Weight Chart * Medication List * List of questions Do not drink excessive alcohol, beer or wine. Pending Studies at Discharge: No Stand-Alone Forms: My [facility] [address] [place], Smoking Cessation Medications and DC Order Prescriptions: New lisinopril 20 mg Tablet 20 mg PO QAM 30 Days Qty: 30 RF: 0 Eliquis 5 mg Tablet 5 mg PO BID 30 Days Qty: 60 RF: 3 potassium chloride 10 mEq tablet extended release 10 meq PO DAILY Qty: 30 RF: 0 furosemide [Lasix] 40 mg tablet 40 mg PO DAILY Qty: 30 RF: 0 Continued multivitamin Tablet 1 tab PO DAILY RF: 0 felodipine 5 mg tablet extended release 24 hr 5 mg PO DAILY RF: 0 aspirin [Aspir-81] 81 mg Tablet,Delayed Release (Dr/Ec) 81 mg PO DAILY RF: 0 albuterol sulfate 90 mcg/actuation HFA aerosol inhaler 2 puff INHALATION Q4 PRN (Reason: Shortness Of Breath) RF: 0 Flovent HFA 110 mcg/actuation HFA aerosol inhaler 2 puff INHALATION BID RF: 0 Discontinued lisinopril-hydrochlorothiazide 10-12.5 mg Tablet 1 tab PO DAILY Qty: 0 RF: 0 Discharge Orders: Discharge Order (Routine); Ordered 08/20/19 Ordered By: Prashant Panda/Other Patient Handouts: Tips for Using Less Salt, Low-Salt Choices, Diet Low Salt Dc Admission Data Admit Date/Time: 08/18/19 17:59 Attending Provider: Prashant Berumen Admit Provider: Carla Wahl I. Primary Care Provider: Mitchell Nichols Other Providers: Carla Wahl I. ; Srinath Sood Other Interventions: Discharge Summary Assessment (RN) Last Done: 08/20/19 14:53 DC Date/Time DO NOT enter until pt leaves facility: 08/20/19 15:30
== END 2019-08-20 15:30 | disposition home or self-care (01) | DRG 308 ==
LOC: ED 12:49 → 2S 17:59 → SUATTDRO 17:59 → 2S 19:09

== ENCOUNTER 2021-07-27 10:19 | Inpatient (IN) ==
--- NOTE | 2021-07-27 11:23 | XRay Report ---
XR chest 1V portable CLINICAL HISTORY: Dyspnea. COMPARISON STUDY: 02/05/2020 TECHNIQUE: 1 view of the chest FINDINGS: Single frontal view of the chest demonstrates the cardiomediastinal silhouette to be within normal li mits. There is a decreased inspiratory effort with elevation of the hemidiaphragms and crowding of th e bronchovascular markings at the lung bases and centrally. The lungs are clear of alveolar opacities . There is no evidence for pleural effusion. There is no evidence for vascular congestion. There is n o acute osseous pathology. IMPRESSION: 1. There is a decreased inspiratory effort with otherwise no acute chest disease. ACT 112: Negative or not required by law. Electronically signed by: Yomi Rawls M.D. 07/27/2021 11:21 AM
[2021-07-27 11:35] LABS: Basophils # (auto) 0.01 K/uL (0-0.2); Basophils % (auto) 0.2 %; Hemoglobin 15.2 g/dL (14.0-18.0); Immature Granulocytes # (auto) 0.07 K/uL (0.00-0.02); Immature Granulocytes % (auto) 1.1 %; Lymphocytes # (auto) 0.45 K/uL (1.2-3.4); Lymphocytes % (auto) 6.8 %; Mean Corpuscular Hemoglobin 31.5 pg (25-34); Mean Corpuscular Hgb Conc 34.5 g/dL (32-36); Mean Corpuscular Volume 91.1 fL (80-100); Mean Platelet Volume 10.1 fL (7.4-10.4); Monocytes # (auto) 0.54 K/uL (0.11-0.59); Monocytes % (auto) 8.1 %; Neutrophils # (auto) 5.57 K/uL (1.4-6.5); Neutrophils % (auto) 83.8 %; Platelet Count 151 K/uL (130-400); RDW Coefficient of Variation 13.5 % (11.5-14.5); RDW Standard Deviation 45.1 fL (36.4-46.3); Red Blood Count 4.83 M/uL (4.7-6.1); White Blood Count 6.64 K/uL (4.8-10.8)
[2021-07-27 11:56] LABS: Albumin Globulin Ratio 1.4 (0.9-2); Albumin Level 3.9 gm/dl (3.4-5.0); BUN Creatinine Ratio 17.8 (10-20); Calcium 8.7 mg/dl (8.5-10.1); Creatinine Clr Calc Pharmacy 95.9 ml/min; Est GFR (African American) 93.8 ml/min; Est GFR (Non-African American) 80.9 ml/min; Globulin 2.8 gm/dl (2.5-4.0); Magnesium 1.7 mg/dl (1.7-2.4); Potassium 3.6 mmol/L (3.5-5.1); Total Protein 6.7 gm/dl (6.0-8.3); Troponin I High Sensitivity 15.5 pg/ml (0-20)
--- NOTE | 2021-07-27 12:11 | Emergency Department Note ---
Impression & Plan SOB (shortness of breath), Bilateral edema of lower extremity, Atrial fibrillation with rapid ventricular response ED Provider Note INFORMANT: Patient ED PROVIDER(S): Cachorro Abel MD CHIEF COMPLAINT: Shortness of breath PLAN: Disposition: Admitted Condition: Good Outpatient prescription management: none Referral: None MEDICAL DECISION MAKING: Patient presented because of shortness of breath. He noted on further history that he did not take his diuretic today or yesterday. He was found to be in A. fib with RVR. He had a borderline temperature in the office and provider there was concerned about mild confusion. COVID testing was performed here and was negative. Chest x-ray did not reveal any infiltrate. He did have atrial fibrillation on his ECG however the RVR did resolve without direct intervention. Patient does have peripheral edema and his BNP is elevated. This is concerning for mild fluid overload. With his history of COPD, A. fib and the findings today the patient was given a Xopenex neb, Solu-Medrol, and IV Lasix. Nursing did raise concerns about the patient's ability to get around, care, and seeming mildly confused. He had no focal findings and headache. The patient would benefit from stay in the hospital and further work-up. Patient was in ag reement. Consultation was made with the [facility] service. Patient was evaluated in the ER and admitted. Triage Nursing notes reviewed and agree them. Vital Signs: reviewed and remarkable for no significant abnormalities Differential diagnosis: Reactive airway disease, pneumonia, pneumothorax, COPD, CHF, infections, cardiac ischemia, pulmonary embolism, musculoskeletal, gastrointestinal, as well as other pathologies. Diagnostics interpreted by me: ECG: Twelve-lead ECG reveals A. fib with RVR and left axis deviation with right bundle branch block. Inverted T waves anteriorly. No ST elevation. When compared to 05/15/2019 the inverted T waves have replaced nonspecific ST abn ormality. Cardiac Monitoring: Cardiac monitoring ordered by me: The patient was placed on continuous cardiac monitoring and observed. It revealed atrial fibrillation at 83 bpm. Imaging studies: Chest x-ray. Findings: A chest x-ray was performed and revealed no pneumothorax, effusion, infiltrate, pulmonary edema, free air under the diaphragm, or wide mediastinum. Impression: No acute disease. HPI: The patient is a 81 year old male who presents to the Emergency Room with complaints of shortness of breath . This started few days ago and is increasing. The patient also notes the following associated symptoms, mild cough. The patient has found no relieving factors. Current pain is rated as 0/10. Pt denies LOC, headache, fevers, chills, diaphoresis, visual changes, neck pain, chest pain, nausea, vomiting, abdominal pain, back pain, melena, hematochezia, urinary symptoms, numbness, weakness, lymphadenopathy, rash, or other complaints. ROS: See above HPI for pertinent positives & negatives. A total of 10 systems reviewed and were otherwise negative. PAST MEDICAL HISTORY:See Below , atrial fibrillation PAST SURGICAL HISTORY:See Below, FAMILY HISTORY:See Below SOCIAL HISTORY:See Below, HOME MEDICATIONS:See Below ALLERGIES:See Below VITALS:See Below PHYSICAL EXAMINATION: GENERAL: Awake, alert, mildly dyspneic-appearing, in no distress HENT: Normocephalic, atraumatic. Oropharynx unremarkable. EYES: Normal conjunctiva. Sclera non-icteric. NECK: Inspection normal. Non-tender. Supple. No nuchal rigidity. FROM. No masses. RESPIRATORY: Clear to auscultation. No wheezes. No rales. Normal respiratory effort. CARDIAC: Tachycardic rate. Irregular rhythm. No murmurs. No rubs. Extremities warm and well perfused. Pulses equal. No JVD. GI: Soft, non-distended. No tenderness to palpation. No rebound or guarding. No masses. RECTAL: Deferred. MUSCULOSKELETAL: Atraumatic. Chest examination reveals no tenderness. The back is symmetrical on inspection without obvious abnormality. There is no CVA tenderness to palpation. No joint edema. LOWER EXTREMITIES: Calves are equal size bilaterally and non-tender. No edema. No discoloration. NEURO: Normal sensorium. No sensory or motor deficits noted. SKIN: No rash or jaundice noted. Cachorro Abel MD Past Med/Surg History Medical History (Updated 07/27/21 @ 12:11 by Cachorro Abel MD) Asthma Bronchitis Cellulitis of chest wall Failure of outpatient treatment HTN (hypertension) Family History Other No pertinent family history Social History Smoking Status: Never smoker Second Hand Exposure: No; Hx Alcohol Use: No Hx Substance Use: No Preferred Language: Sinhala Communication Ability: Effective Returned Telephone Equipment Appraiser Required: No Beliefs That Will Affect Care: None Current Living Situation: Spouse Feels Safe at Home: Yes Assistive Devices: CPAP and Denture - Upper Allergies Allergies Allergy/AdvReac Type Severity Reaction Status Date / Time lumiracoxib Allergy Severe swelling Verified 07/27/21 13:42 rofecoxib Allergy Unknown Unknown Verified 07/27/21 13:42 Home Meds Home Medications Medication Instructions Recorded Confirmed albuterol sulfate 90 mcg/actuation 2 puff INHALATION Q4 PRN 08/18/19 07/27/21 aerosol inhaler multivitamin 1 tab PO QAM 08/18/19 07/27/21 lisinopril 20 mg tablet 20 mg PO QAM 12/30/19 07/27/21 meclizine 25 mg tablet 25 mg PO TID PRN 02/05/20 07/27/21 metoprolol succinate 25 mg 25 mg PO QAM 02/05/20 07/27/21 tablet,extended release 24 hr tiotropium bromide 2.5 2 inh INHALATION QAM 02/05/20 07/27/21 mcg/actuation mist for inhalation (Spiriva Respimat) torsemide 20 mg tablet 20 mg PO QAM 02/05/20 07/27/21 spironolactone 25 mg tablet 12.5 mg PO QAM 03/18/20 07/27/21 aspirin 81 mg tablet,delayed 81 mg PO QAM 03/23/20 07/27/21 release (Aspirin Low Dose) acetaminophen 325 mg tablet 325 mg PO QID PRN 07/27/21 07/27/21 (Tylenol) Previous Rx's Medication Instructions Recorded apixaban 5 mg tablet (Eliquis) 5 mg PO BID 30 Days #60 tab 08/19/19 Results & Data (ED) Vital Signs Vital Signs - 24 hr 07/27/21 10:26 07/27/21 10:34 07/27/21 11:08 Temperature 37.5 C Temperature Source Oral Pulse Rate 103 H 101 H Pulse Rate [Right Finger] 101 H Pulse Rhythm Regular Irregular Pulse Rhythm [Right Finger] Irregular Pulse Strength Normal Pulse Strength [Right Finger] Normal Respiratory Rate 16 22 Respiratory Effort / Characteristics Non-Labored Non-Labored Respiratory Depth Normal Shallow Respiratory Pattern Regular Tachypnea Blood Pressure 134/90 Blood Pressure [Left Arm] 134/90 Blood Pressure Mean 104 Blood Pressure Mean [Left Arm] 104 Blood Pressure Position Lying Blood Pressure Position [Left Arm] Lying Pulse Oximetry 93 95 96 Oxygen Delivery Method Room Air Room Air Room Air Sepsis Recent Fever Within 48 Hours Yes Sepsis New/Unexplained Change in Mental Status No Sepsis Action Taken by Nursing No Action Required 07/27/21 11:45 07/27/21 12:50 07/27/21 14:06 Temperature Temperature Source Pulse Rate 88 Pulse Rate [Right Finger] 88 Pulse Rhythm Pulse Rhythm [Right Finger] Pulse Strength Pulse Strength [Right Finger] Respiratory Rate 23 20 Respiratory Effort / Characteristics Labored Non-Labored Respiratory Depth Deep Normal Respiratory Pattern Irregular Blood Pressure 127/66 Blood Pressure [Left Arm] 108/60 Blood Pressure Mean 86 Blood Pressure Mean [Left Arm] 76 Blood Pressure Position Blood Pressure Position [Left Arm] Pulse Oximetry 93 92 Oxygen Delivery Method Room Air Sepsis Recent Fever Within 48 Hours Sepsis New/Unexplained Change in Mental Status Sepsis Action Taken by Nursing Laboratory Data Result diagrams: 07/27/21 11:01 07/27/21 11:01 Lab Results 07/27/21 07/27/21 07/27/21 Range/Units 11:01 11:01 11:03 WBC 6.64 (4.8-10.8) K/uL RBC 4.83 (4.7-6.1) M/uL Hgb 15.2 (14.0-18.0) g/dL Hct 44.0 (42-52) % MCV 91.1 (80-100) fL MCH 31.5 (25-34) pg MCHC 34.5 (32-36) g/dL RDW Std Deviation 45.1 (36.4-46.3) fL RDW Coeff of Keanu 13.5 (11.5-14.5) % Plt Count 151 (130-400) K/uL MPV 10.1 (7.4-10.4) fL Immature Gran % (Auto) 1.1 % Neut % (Auto) 83.8 % Lymph % (Auto) 6.8 % [place] % (Auto) 8.1 % Eos % (Auto) 0.0 % Baso % (Auto) 0.2 % Neut # (Auto) 5.57 (1.4-6.5) K/uL Lymph # (Auto) 0.45 L (1.2-3.4) K/uL [place] # (Auto) 0.54 (0.11-0.59) K/uL Eos # (Auto) 0.00 (0-0.5) K/uL Baso # (Auto) 0.01 (0-0.2) K/uL Immature Gran # (Auto) 0.07 H (0.00-0.02) K/uL Sodium 136 (136-145) mmol/L Potassium 3.6 (3.5-5.1) mmol/L Chloride 102 (98-107) mmol/L Carbon Dioxide 25 (21-32) mmol/L Anion Gap 9 (3-11) BUN 16 (6-23) mg/dl Creatinine 0.90 (0.6-1.4) mg/dl Est Cr Clr Drug Dosing 95.9 ml/min Est GFR ( Amer) 93.8 ml/min Est GFR (Non-Af Amer) 80.9 ml/min BUN/Creatinine Ratio 17.8 (10-20) Glucose 130 H (70-99(Fasting)) mg/dl Calcium 8.7 (8.5-10.1) mg/dl Magnesium 1.7 (1.7-2.4) mg/dl Total Bilirubin 1.0 (0.2-1.0) mg/dl AST 27 (13-39) U/L ALT 50 (7-52) U/L Alkaline Phosphatase 65 (34-104) U/L Troponin I High Sens 15.5 (0-20) pg/ml B-Natriuretic Peptide (0-100) pg/ml Total Protein 6.7 (6.0-8.3) gm/dl Albumin 3.9 (3.4-5.0) gm/dl Globulin 2.8 (2.5-4.0) gm/dl Albumin/Globulin Ratio 1.4 (0.9-2) SARS-CoV-2 (PCR) NEGATIVE (Negative) Influenza Type A (PCR) Negative (Neg) Influenza Type B (PCR) Negative (Neg) RSV (RT-PCR) Negative (Neg) 07/27/21 Range/Units 11:22 WBC (4.8-10.8) K/uL RBC (4.7-6.1) M/uL Hgb (14.0-18.0) g/dL Hct (42-52) % MCV (80-100) fL MCH (25-34) pg MCHC (32-36) g/dL RDW Std Deviation (36.4-46.3) fL RDW Coeff of Keanu (11.5-14.5) % Plt Count (130-400) K/uL MPV (7.4-10.4) fL Immature Gran % (Auto) % Neut % (Auto) % Lymph % (Auto) % [place] % (Auto) % Eos % (Auto) % Baso % (Auto) % Neut # (Auto) (1.4-6.5) K/uL Lymph # (Auto) (1.2-3.4) K/uL [place] # (Auto) (0.11-0.59) K/uL Eos # (Auto) (0-0.5) K/uL Baso # (Auto) (0-0.2) K/uL Immature Gran # (Auto) (0.00-0.02) K/uL Sodium (136-145) mmol/L Potassium (3.5-5.1) mmol/L Chloride (98-107) mmol/L Carbon Dioxide (21-32) mmol/L Anion Gap (3-11) BUN (6-23) mg/dl Creatinine (0.6-1.4) mg/dl Est Cr Clr Drug Dosing ml/min Est GFR ( Amer) ml/min Est GFR (Non-Af Amer) ml/min BUN/Creatinine Ratio (10-20) Glucose (70-99(Fasting)) mg/dl Calcium (8.5-10.1) mg/dl Magnesium (1.7-2.4) mg/dl Total Bilirubin (0.2-1.0) mg/dl AST (13-39) U/L ALT (7-52) U/L Alkaline Phosphatase (34-104) U/L Troponin I High Sens (0-20) pg/ml B-Natriuretic Peptide 119 H (0-100) pg/ml Total Protein (6.0-8.3) gm/dl Albumin (3.4-5.0) gm/dl Globulin (2.5-4.0) gm/dl Albumin/Globulin Ratio (0.9-2) SARS-CoV-2 (PCR) (Negative) Influenza Type A (PCR) (Neg) Influenza Type B (PCR) (Neg) RSV (RT-PCR) (Neg) Administered Medications Discontinued Medications Furosemide (Furosemide 40 Mg/4 Ml Vial) 40 mg IV ONE ONE Stop: 07/27/21 13:49 Last Admin: 07/27/21 14:12 Dose: 40 mg Documented by: [id number] Levalbuterol HCl (Levalbuterol Hcl 0.63 Mg/3 Ml Neb) 0.63 mg NEB NOW STA; Protocol Stop: 07/27/21 13:49 Last Admin: 07/27/21 14:12 Dose: 0.63 mg Documented by: [id number] Methylprednisolone (Methylprednisolone 125 Mg/2 Ml Vial) 125 mg IV NOW STA Stop: 07/27/21 13:49 Last Admin: 07/27/21 14:12 Dose: 125 mg Documented by: [id number] Imaging Data Radiologist's Impression: Chest X-Ray 07/27/21 11:08 XR chest 1V portable CLINICAL HISTORY: Dyspnea. COMPARISON STUDY: 02/05/2020 TECHNIQUE: 1 view of the chest FINDINGS: Single frontal view of the chest demonstrates the cardiomediastinal silhouette to be within normal limits. There is a decreased inspiratory effort with elevation of the hemidiaphragms and crowding of the bronchovascular markings at the lung bases and centrally. The lungs are clear of alveolar opacities. There is no evidence for pleural effusion. There is no evidence for vascular congestion. There is no acute osseous pathology. IMPRESSION: 1. There is a decreased inspiratory effort with otherwise no acute chest disease. ACT 112: Negative or not required by law. Electronically signed by: Yomi Rawls M.D. 07/27/2021 11:21 AM Discharge Plan Visit Data Chief Complaint: Shortness of Breath/Dyspnea Stated Complaint: difficulty breathing ED Provider: Cachorro Abel Discharge Problem: SOB (shortness of breath), Bilateral edema of lower extremity, Atrial fibrillation with rapid ventricular response Forms Stand Alone Forms: My [facility] [employer] Prescriptions Prescriptions: No Action multivitamin Tablet 1 tab PO QAM RF: 0 albuterol sulfate 90 mcg/actuation HFA aerosol inhaler 2 puff INHALATION Q4 PRN (Reason: Shortness Of Breath) RF: 0 Eliquis 5 mg Tablet 5 mg PO BID 30 Days Qty: 60 RF: 3 lisinopril 20 mg Tablet 20 mg PO QAM RF: 0 torsemide 20 mg Tablet 20 mg PO QAM RF: 0 meclizine 25 mg tablet 25 mg PO TID PRN (Reason: Dizziness) RF: 0 metoprolol succinate 25 mg tablet extended release 24 hr 25 mg PO QAM RF: 0 Spiriva Respimat 2.5 mcg/actuation mist 2 inh INHALATION QAM RF: 0 spironolactone 25 mg Tablet 12.5 mg PO QAM RF: 0 aspirin [Aspirin Low Dose] 81 mg Tablet,Delayed Release (Dr/Ec) 81 mg PO QAM RF: 0 acetaminophen [Tylenol] 325 mg Tablet 325 mg PO QID PRN (Reason: Pain) RF: 0 Referrals Referrals: Mitchell Nichols DO [Primary Care Provider] -
[2021-07-27 12:20] LABS: Influenza A virus by PCR Negative (Neg); Influenza B virus by PCR Negative (Neg); RSV by PCR Negative (Neg); SARS CoV2 RNA(COVID-19) InHosp NEGATIVE (Negative)
[2021-07-27] MEDS ORDERED: FUROSEMIDE 40 MG/4 ML VIAL IV ONE (13:48)
[2021-07-27] MEDS ORDERED: LEVALBUTEROL HCL 0.63 MG/3 ML NEB NEB STA (13:48)
[2021-07-27] MEDS ORDERED: methylPREDNISolone 125 MG/2 ML VIAL IV STA (13:48)
--- NOTE | 2021-07-27 14:12 | Electrocardiogram Report ---
Test Reason : Blood Pressure : / mmHG Vent. Rate : 109 BPM Atrial Rate : 072 BPM P-R Int : 000 ms QRS Dur : 150 ms QT Int : 356 ms P-R-T Axes : 000 -75 018 degrees QTc Int : 479 ms Atrial fibrillation with rapid ventricular response Left axis deviation Right bundle branch block Abnormal ECG When compared with ECG of 05-FEB-2020 14:01, Inverted T waves have replaced nonspecific T wave abnormality in Anterior leads Confirmed by Cuate Graham ([id number]) on 07/27/2021 2:11:32 PM Referred By: ED Confirmed By:Cuate Graham
[2021-07-27 15:32] LABS: Appearance Urine Clear (Clear); Bacteria Urine Automated Negative (Negative); Bilirubin Urine Negative (Negative); Blood Urine Negative (Negative); Color Urine Yellow; Glucose Urine UA Negative (Negative); Ketones Urine Negative (Negative); Leukocyte Esterase Urine 2+ (Negative); Nitrite Urine Negative (Negative); Protein Urine Negative (Negative); Specific Gravity Urine 1.017 (1.000-1.030); Urobilinogen Urine Negative (Negative); pH Urine 5.5 (4.5-7.5)
[2021-07-27 15:57] LABS: Amphetamines+Metham, Urine Neg (Neg); Barbiturates, Urine Neg (Neg); Benzodiazepine, Urine Neg (Neg); Cocaine, Urine Neg (Neg); MDMA (Ecstacy), Urine Neg (Neg); Methadone, Urine Neg (Neg); Opiate, Urine Neg (Neg); Phencyclidine, Urine Neg (Neg)
--- NOTE | 2021-07-27 16:00 | CT Scan Report ---
CT head/brain wo con CLINICAL HISTORY: AMS Technique: Contiguous axial CT images of the head were acquired from the base of the skull to the kenia jared without intravenous contrast administration. Images were viewed in brain, subdural and [facility]. Automated dose lowering techniques and/or adjustment according to patient size were utilized for this exam. Comparison: Comparison is made to MRI brain 02/05/2020 Findings: The ventricles, basal cisterns, and cerebral sulci are normal. There is no acute intracranial hemorrh age or evidence of acute territorial infarction. Neither mass effect, shift of the midline structures , nor abnormal extra-axial fluid collections are shown. Imaged portions of the paranasal sinuses and mastoid air cells are clear. The orbits appear normal. There are no acute fractures of the calvaria or scalp swelling. A cystic lesion in the right frontal calvarium is unchanged. Impression: No acute intracranial hemorrhage, no evidence of acute territorial infarction or other acute intracra nial disease process. ACT 112: Negative or not required by law. Electronically signed by: Horace Rivera M.D. 07/27/2021 3:58 PM
--- NOTE | 2021-07-27 16:00 | History & Physical Report ---
Date of Service July 27, 2021 Assessment & Plan (1) COPD exacerbation: Plan: Patient is 81-year-old male with PMH atrial fibrillation on Eliquis, chronic diastolic heart failure, COPD, HTN, MONIQUE presented to ER from PCPs office for shortness of breath and reported confusion. Patient with reported ongoing SOB with exertion, cough. Yesterday with onset myalgias, dizziness. PCP office today was confusion, SOB. Pt's with myalgias, rhinorrhea and dizziness, confusion as well. In ER no hypoxia, no leukocytosis. Negative COVID 19 PCR, Negative Influenza and RSV PCR. CXR: no acute disease Procalcitonin pending Biofire pending Recently treated outpatient on 07/21/21 for COPD exac with Prednisone taper x 8 days In ER reported pt had initial wheezing and received solumedrol 125mg IV and xopenex neb No current wheezing on exam Xopenex nebs prn Doxycycline Reassess if recurrent wheezing consider further steroids Delsym prn CBC, BMP in am (2) Confusion: Plan: Found to be confused in PCP office today CT Head no acute intracranial findings UA and urine tox screen pending Carboxyhemoglobin WNL May be secondary to underlying illness Monitor (3) Atrial fibrillation with rapid ventricular response: Plan: History chronic atrial fibrillation anticoagulated on Eliquis Today in ER initial rate 109 down to 80's without further intervention Monitor on telemetry Continue Eliquis, metoprolol (4) Chronic diastolic heart failure: Plan: History echo 08/2019 EF: 50-55%, grade 2 diastolic dysfunction, abnormal septal wall motion, atrial valve sclerosis without stenosis, moderate atrial enlargement Currently appears euvolemic Patient reported to ER doctor that he had not taken his home diuretics yesterday or today so patient was given IV Lasix 40 mg in ER Patient currently appears euvolemic Monitor I's and O's, low-sodium diet Continue torsemide, spironolactone (5) HTN (hypertension): Plan: Continue lisinopril (6) MONIQUE (obstructive sleep apnea): Plan: CPAP at bedtime DVT Prophylaxis On Eliquis Full Code as per discussion with pt Follows with Dr Nichols for routine care Pt was seen and care coordinated with Dr Lott. See addendum History of Present Illness Chief Complaint: SOB Primary Care Provider: Mitchell Nichols DO Patient is 81-year-old male with PMH atrial fibrillation on Eliquis, chronic diastolic heart failure, COPD, HTN, MONIQUE presented to ER from PCPs office for shortness of breath and reported confusion. History obtained from patient and outside record review. Patient seen at PCPs office on 07/21/2021 for shortness of breath and was diagnosed with COPD exacerbation and was started on Arnuity Ellipta and prednisone taper x8 days. Today patient was with his at PCP appointment when he was found to be confused in the waiting room, short of breath and was reported to be walking into [facility]. Patient was then seen for an acute visit as well and had reported dizziness and myalgias that started yesterday. He had temp of 37.8C was found to be in A. fib RVR with pulse 124, 93% on room air. Patient's with symptoms of dizziness, myalgias and rhinorrhea as well. There was concern for COVID-19 and patient was referred to ER. Here in ER patient is alert to person and place, confused with month and day. He did not remember going to PCPs office or his recent COPD exacerbation or treatment. Patient reports that his medications this morning. Patient states feeling short of breath with exertion that has been ongoing. He reports the past day has been having dizziness described as the room spinning and feeling achy. Denies falls, chest pain. Denies known fever/chills, diaphoresis, N/V/D/C, PARNELL, syncope, vision changes, neck pain, palpitations, hemoptysis, sore throat, choking, otalgia, rhinorrhea, abdominal pain, paresthesias, weakness, extremity weakness, extremity edema, rashes, urinary symptoms. History of COVID-19 vaccine on 05/27/2020, 06/17/2020 and 01/19/2021. Allergies Allergy/AdvReac Type Severity Reaction Status Date / Time lumiracoxib Allergy Severe swelling Verified 07/27/21 13:42 rofecoxib Allergy Unknown Unknown Verified 07/27/21 13:42 Home Medications Medication Instructions Recorded Confirmed Type albuterol sulfate 90 mcg/actuation 2 puff INHALATION Q4 PRN 08/18/19 07/27/21 History aerosol inhaler multivitamin 1 tab PO QAM 08/18/19 07/27/21 History apixaban 5 mg tablet (Eliquis) 5 mg PO BID 30 Days #60 tab 08/19/19 07/27/21 Rx lisinopril 20 mg tablet 20 mg PO QAM 12/30/19 07/27/21 History meclizine 25 mg tablet 25 mg PO TID PRN 02/05/20 07/27/21 History metoprolol succinate 25 mg 25 mg PO QAM 02/05/20 07/27/21 History tablet,extended release 24 hr tiotropium bromide 2.5 2 inh INHALATION QAM 02/05/20 07/27/21 History mcg/actuation mist for inhalation (Spiriva Respimat) torsemide 20 mg tablet 20 mg PO QAM 02/05/20 07/27/21 History spironolactone 25 mg tablet 12.5 mg PO QAM 03/18/20 07/27/21 History aspirin 81 mg tablet,delayed 81 mg PO QAM 03/23/20 07/27/21 History release (Aspirin Low Dose) acetaminophen 325 mg tablet 325 mg PO QID PRN 07/27/21 07/27/21 History (Tylenol) fluticasone furoate 200 1 inh INHALATION DAILY 07/27/21 07/27/21 History mcg/actuation blister powder for inhalation (Arnuity Ellipta) prednisone 20 mg tablet 20 mg PO UD 07/27/21 07/27/21 History Past Med/Surg History Medical History (Updated 07/27/21 @ 15:51 by Jackeline Scruggs PA-C) Asthma Bronchitis Cellulitis of chest wall Chronic diastolic heart failure COPD (chronic obstructive pulmonary disease) Failure of outpatient treatment HTN (hypertension) HTN (hypertension) MONIQUE (obstructive sleep apnea) Surgical History (Updated 07/27/21 @ 15:47 by Jackeline Scruggs PA-C) History of knee replacement Family History (Updated 07/27/21 @ 15:48 by Jackeline Scruggs PA-C) Sister Cancer Heart disease Mother Diabetes Stroke Father Heart disease Social History (Updated 07/27/21 @ 15:48 by Jackeline Scruggs PA-C) Smoking Status: Former smoker Tobacco Type: Smokeless Tobacco (Dip or Chew) Second Hand Exposure: No; Hx Alcohol Use: No Hx Substance Use: No Preferred Language: Sinhala Communication Ability: Effective 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 Beliefs That Will Affect Care: None Current Living Situation: Spouse Feels Safe at Home: Yes Assistive Devices: CPAP and Denture - Upper Review of Systems Review of Systems: All systems reviewed & are unremarkable except as noted in HPI & below Physical Exam Physical Exam: General: no distress, obese Head: normocephalic, atraumatic Eyes: conjunctiva non-injected, anicteric ENT: normal inspection external ears, nose, mucous membranes moist Neck: supple, trachea midline Lungs: clear, no respiratory distress, no wheezing/rhonchi/rales currently CV: irregularly irregular, rate 88, no pretibial edema Abd: protuberant, normal BS, soft, non-tender Ext: no cyanosis, no calf tenderness Neuro: Alert, oriented to person, place. oriented to year only. no focal deficits noted, normal affect Skin: warm, dry Results & Data Results & Data ([facility]) Vital Signs (Past 12 Hours) Vital Signs Temp Pulse Pulse Resp BP BP Pulse Ox 07/27/21 14:06 88 20 108/60 92 07/27/21 12:50 88 23 127/66 93 07/27/21 11:08 96 07/27/21 10:34 101 H 101 H 22 134/90 95 07/27/21 10:26 37.5 C 103 H 16 134/90 93 Laboratory Results Short CBC 07/27/21 Range/Units 11:01 WBC 6.64 (4.8-10.8) K/uL Hgb 15.2 (14.0-18.0) g/dL Hct 44.0 (42-52) % Plt Count 151 (130-400) K/uL BMP 07/27/21 11:01 Sodium 136 Potassium 3.6 Chloride 102 Carbon Dioxide 25 BUN 16 Creatinine 0.90 Glucose 130 H Calcium 8.7 Liver Function 07/27/21 Range/Units 11:01 Total Bilirubin 1.0 (0.2-1.0) mg/dl AST 27 (13-39) U/L ALT 50 (7-52) U/L Alkaline Phosphatase 65 (34-104) U/L Albumin 3.9 (3.4-5.0) gm/dl Urine 07/27/21 Range/Units 15:00 Urine Color Yellow Urine Appearance Clear (Clear) Urine pH 5.5 (4.5-7.5) Ur Specific [place] 1.017 (1.000-1.030) Urine Protein Negative (Negative) Urine Glucose (UA) Negative (Negative) Diagnostic Findings Chest X-Ray 07/27/21 11:08 XR chest 1V portable CLINICAL HISTORY: Dyspnea. COMPARISON STUDY: 02/05/2020 TECHNIQUE: 1 view of the chest FINDINGS: Single frontal view of the chest demonstrates the cardiomediastinal silhouette to be within normal limits. There is a decreased inspiratory effort with elevation of the hemidiaphragms and crowding of the bronchovascular markings at the lung bases and centrally. The lungs are clear of alveolar opacities. There is no evidence for pleural effusion. There is no evidence for vascular congestion. There is no acute osseous pathology. IMPRESSION: 1. There is a decreased inspiratory effort with otherwise no acute chest disease. ACT 112: Negative or not required by law. Electronically signed by: Yomi Rawls M.D. 07/27/2021 11:[address] 07/27/21 15:02 CT head/brain wo con CLINICAL HISTORY: AMS Technique: Contiguous axial CT images of the head were acquired from the base of the skull to the vertex without intravenous contrast administration. Images were viewed in brain, subdural and bone windows. Automated dose lowering techniques and/or adjustment according to patient size were utilized for this exam. Comparison: Comparison is made to MRI brain 02/05/2020 Findings: The ventricles, basal cisterns, and cerebral sulci are normal. There is no acute intracranial hemorrhage or evidence of acute territorial infarction. Neither mass effect, shift of the midline structures, nor abnormal extra-axial fluid collections are shown. Imaged portions of the paranasal sinuses and mastoid air cells are clear. The orbits appear normal. There are no acute fractures of the calvaria or scalp swelling. A cystic lesion in the right frontal calvarium is unchanged. Impression: No acute intracranial hemorrhage, no evidence of acute territorial infarction or other acute intracranial disease process. ACT 112: Negative or not required by law. Electronically signed by: Horace Rivera M.D. 07/27/2021 3:58 PM Code Status & VTE Plan VTE Prophylaxis Plan VTE Prophylaxis will be ordered: Yes Supervising Physician Co-Signing Physician Notes Patient is a 81-year-old male with history of COPD, atrial fibrillation on chronic anticoagulation with Eliquis, obstructive sleep apnea and other medical problems presents with history of shortness of breath, dizziness and reported confusion. Patient was recently being treated for COPD exacerbation. Patient was noted to be confused while visiting PCP today and was found to be febrile. Patient's had URI symptoms as well. Please review HPI for complete details of presentation. On exam patient is obese, normocephalic atraumatic, no apparent distress, EOMI, mildly decreased breath sounds, clear to auscultation, no accessory muscle use, irregularly irregular rhythm, no murmur, trace pedal edema, abdomen soft, nontender, normal bowel sounds, alert, awake, oriented to person and place, grossly no focal deficits. Blood work reviewed. Procalcitonin elevated 0.78, urine tox screen negative, carboxyhemoglobin negative. COVID, influenza, RSV screen negative. Bio fire pending. CT head showed no acute findings. Chest x- ray showed no acute process. Patient is admitted for management of ? Atypical pneumonia, recovering from COPD exacerbation. Rule out COVID. Confusion likely metabolic encephalopathy, unclear etiology. Started on doxycycline. Nebs as needed. Consider starting steroids if develops wheezing. May need further evaluation for confusion if no improvement. I personally reviewed the record. Patient is interviewed and examined at bedside. Patient's care is coordinated with Jackeline Scruggs PA-C. Please refer to the documentation above for details of patient's presentation and for discussion of other issues.
[2021-07-27 17:34] LABS: Adenovirus PCR Not Detected (NotDetected); Bordetella parapertussis PCR Not Detected (NotDetected); Bordetella pertussis PCR Not Detected (NotDetected); Chlamydia pneumoniae PCR Not Detected (NotDetected); Coronavirus 229E PCR Not Detected (NotDetected); Coronavirus CoV-2 (COVID19)PCR Not Detected (NotDetected); Coronavirus HKU1 PCR Not Detected (NotDetected); Coronavirus NL63 PCR Not Detected (NotDetected); Coronavirus OC43PCR Not Detected (NotDetected); Human Metapneumovirus PCR Not Detected (NotDetected); Influenza A PCR Not Detected (NotDetected); Influenza B PCR Not Detected (NotDetected); Mycoplasma pneumoniae PCR Not Detected (NotDetected); Parainfluenza Virus 1 PCR Not Detected (NotDetected); Parainfluenza Virus 2 PCR Not Detected (NotDetected); Parainfluenza Virus 3 PCR Not Detected (NotDetected); Parainfluenza Virus 4 PCR Not Detected (NotDetected); Respiratory Syncytial VirusPCR Not Detected (NotDetected); Rhinovirus/Enterovirus PCR Not Detected (NotDetected)
[2021-07-27] MEDS ORDERED: POLYETHYLENE (MIRALAX) 17 GM PACK PO PRN (17:44)
[2021-07-27] MEDS ORDERED: ACETAMINOPHEN 325 MG TAB PO PRN (17:44)
[2021-07-27] MEDS ORDERED: DEXTROMETHORPHAN POLYMR COMPLX 30 MG/5 ML UDP PO PRN (17:44)
[2021-07-27] MEDS ORDERED: ALBUT/IPRATROP 3MG/0.5MG NEB 3 ML VIAL NEB PRN (17:44)
[2021-07-27] MEDS: DOXYCYCLINE HYCLATE 100 MG CAP PO SCH (20:49)
[2021-07-27] MEDS: APIXABAN 5 MG TABLET PO SCH (20:49)
[2021-07-28] MEDS: FLUTICASONE FUROATE 200MCG 14 PUFFS/INHALER INH SCH (09:41)
[2021-07-28] MEDS: UMECLIDINIUM BROMIDE 62.5MCG/BLISTER 7 PUFFS/INHALER INH SCH (09:41)
[2021-07-28 09:42] LABS: Anion Gap 7 (3-11); BUN Creatinine Ratio 22.9 (10-20); Blood Urea Nitrogen 19 mg/dl (6-23); Calcium 8.3 mg/dl (8.5-10.1); Carbon Dioxide 28 mmol/L (21-32); Chloride 102 mmol/L (98-107); Creatinine Clr Calc Pharmacy 103.3 ml/min; Est GFR (Non-African American) 83.7 ml/min; Glucose 136 mg/dl (70-99(Fasting)); Sodium 137 mmol/L (136-145)
[2021-07-28] MEDS: METOPROLOL SUCC 25MG EXT REL TAB PO SCH (09:45)
[2021-07-28] MEDS: SPIRONOLACTONE 12.5 MG TAB PO SCH (09:45)
[2021-07-28] MEDS: TORSEMIDE 20 MG TAB PO SCH (09:45)
[2021-07-28] MEDS: lisinopril 20 MG TAB PO SCH (09:45)
[2021-07-28] MEDS: MULTIVITAMIN TAB PO SCH (09:45)
[2021-07-28] MEDS: APIXABAN 5 MG TABLET PO SCH ×2 (09:46→20:33)
[2021-07-28] MEDS: DOXYCYCLINE HYCLATE 100 MG CAP PO SCH ×2 (09:46→20:33)
[2021-07-28] MEDS: ASPIRIN 81 MG ECTAB PO SCH (09:47)
[2021-07-28 10:09] LABS: Hematocrit (blood only) 43.2 % (42-52); Hemoglobin 14.3 g/dL (14.0-18.0); Mean Corpuscular Hemoglobin 30.2 pg (25-34); Mean Corpuscular Hgb Conc 33.1 g/dL (32-36); Mean Corpuscular Volume 91.3 fL (80-100); Mean Platelet Volume 10.6 fL (7.4-10.4); Platelet Count 137 K/uL (130-400); RDW Coefficient of Variation 13.9 % (11.5-14.5); RDW Standard Deviation 46.7 fL (36.4-46.3); Red Blood Count 4.73 M/uL (4.7-6.1); White Blood Count 6.44 K/uL (4.8-10.8)
--- NOTE | 2021-07-28 15:45 | Hospitalist Progress Note ---
Date of Service July 28, 2021 Assessment & Plan (1) COPD exacerbation: Plan: Patient is 81-year-old male with PMH atrial fibrillation on Eliquis, chronic diastolic heart failure, COPD, HTN, MONIQUE presented to ER from PCPs office for shortness of breath and reported confusion. Patient with reported ongoing SOB with exertion, cough. Yesterday with onset myalgias, dizziness. PCP office today was confusion, SOB. Pt's with myalgias, rhinorrhea and dizziness, confusion as well. In ER no hypoxia, no leukocytosis. Negative COVID 19 PCR, Negative Influenza and RSV PCR. CXR: no acute disease Procalcitonin-normal at 0.78 Biofire pending -negative Recently treated outpatient on 07/21/21 for COPD exac with Prednisone taper x 8 days In ER reported pt had initial wheezing and received solumedrol 125mg IV and xopenex neb No current wheezing on exam Xopenex nebs prn Doxycycline Reassess if recurrent wheezing consider further steroids Delsym prn CBC, BMP in am-no acute findings We will get PT and OT evaluation for possible discharge tomorrow (2) Confusion: Plan: Found to be confused in PCP office today CT Head no acute intracranial findings UA and urine tox screen pending Carboxyhemoglobin WNL May be secondary to underlying illness Confusion seems to be resolved and is back to her his baseline (3) Atrial fibrillation with rapid ventricular response: Plan: History chronic atrial fibrillation anticoagulated on Eliquis Today in ER initial rate 109 down to 80's without further intervention Monitor on telemetry Continue Eliquis, metoprolol Rate is controlled (4) Chronic diastolic heart failure: Plan: History echo 08/2019 EF: 50-55%, grade 2 diastolic dysfunction, abnormal septal wall motion, atrial valve sclerosis without stenosis, moderate atrial enlargement Currently appears euvolemic Patient reported to ER doctor that he had not taken his home diuretics yesterday or today so patient was given IV Lasix 40 mg in ER Patient currently appears euvolemic Monitor I's and O's, low-sodium diet Continue torsemide, spironolactone No evidence of fluid overload (5) HTN (hypertension): Plan: Continue lisinopril (6) MONIQUE (obstructive sleep apnea): Plan: CPAP at bedtime DVT Prophylaxis On Eliquis Full Code as per discussion with pt Follows with Dr Nichols for routine care PT and OT evaluation and likely discharge tomorrow Admission and Anticipated Discharge Date Admission Date: July 27, 2021 Subjective 07/28/2021 The patient was seen and examined in medical telemetry unit He has been feeling much better and denies any significant symptoms He will get PT and OT evaluation prior to discharge Review of Systems Review of Systems: All systems reviewed & are unremarkable except as noted in HPI & below Physical Exam Physical Exam: Lying in bed comfortably Constitutional: well developed, well nourished and + obese; not ill appearing Eyes: PERRL, conjunctivae normal, anicteric sclerae ENMT: external ear and nose normal, oropharynx normal Neck: trachea midline, no thyromegaly Respiratory: no respiratory distress Auscultation: + diminished lung sounds and + crackles (Minimal crackles at the bases) Cardiovascular: Rate/Rhythm: + irregularly irregular; not tachycardic Heart Sounds: normal S1 and normal S2; no murmur Extremities: + edema (Trace edema bilaterally) Gastrointestinal (Abdomen): Inspection/Auscultation: + abdomen distended and normal bowel sounds Percussion/Palpation: abdomen soft; abdomen nontender Musculoskeletal: No acute arthritis in any joint Neurologic: normal touch/pain/proprioception and moves all extremities Results & Data Results & Data ([facility]) Vital Signs (Past 12 Hours) Vital Signs Temp Pulse Pulse Resp BP BP Pulse Ox 07/28/21 14:28 07/28/21 11:11 36.6 C 69 20 112/70 93 07/28/21 08:00 37.0 C 72 22 102/63 94 07/28/21 06:32 76 07/28/21 06:20 59 L 07/28/21 04:41 36.7 C 72 20 126/75 94 Pulse Ox 07/28/21 14:28 96 07/28/21 11:11 07/28/21 08:00 07/28/21 06:32 07/28/21 06:20 07/28/21 04:41 Laboratory Results Short CBC 07/28/21 Range/Units 08:04 WBC 6.44 (4.8-10.8) K/uL Hgb 14.3 (14.0-18.0) g/dL Hct 43.2 (42-52) % Plt Count 137 (130-400) K/uL BMP 07/28/21 07/28/21 08:04 10:23 Sodium 137 Potassium TNP 3.8 Chloride 102 Carbon Dioxide 28 BUN 19 Creatinine 0.83 Glucose 136 H Calcium 8.3 L Medications Administered Current Inpatient Medications Acetaminophen (Acetaminophen 325 Mg Tab) 650 mg PO Q4H PRN PRN Reason: Pain or Fever Stop: 08/26/21 17:43 Albuterol (Albut/Ipratrop 3mg/0.5mg Neb 3 Ml Vial) 3 ml NEB QIDR PRN; Protocol PRN Reason: Shortness Of Breath Or Wheezing Stop: 08/26/21 17:43 Apixaban (Apixaban 5 Mg Tablet) 5 mg PO BID [facility] Stop: 08/26/21 20:59 Last Admin: 07/28/21 09:46 Dose: 5 mg Documented by: Aspirin (Aspirin 81 Mg Ectab) 81 mg PO QAM [facility] Stop: 08/27/21 08:59 Last Admin: 07/28/21 09:47 Dose: 81 mg Documented by: Dextromethorphan Polymer Complex (Dextromethorphan Polymr Complx 30 Mg/5 Ml Udp) 30 mg PO Q12H PRN PRN Reason: Cough Stop: 08/26/21 17:43 Doxycycline Hyclate (Doxycycline Hyclate 100 Mg Cap) 100 mg PO BID [facility] Stop: 08/03/21 20:59 Last Admin: 07/28/21 09:46 Dose: 100 mg Documented by: Fluticasone Furoate (Fluticasone Furoate 200mcg 14 Puffs/Inhaler) 1 puffs INH DAILY [facility] Stop: 08/27/21 08:59 Last Admin: 07/28/21 09:41 Dose: 1 puffs Documented by: Lisinopril (Lisinopril 20 Mg Tab) 20 mg PO QAM [facility] Stop: 08/27/21 08:59 Last Admin: 07/28/21 09:45 Dose: 20 mg Documented by: Metoprolol Succinate (Metoprolol Succ 25mg Ext Rel Tab) 25 mg PO QAM [facility] Stop: 08/27/21 08:59 Last Admin: 07/28/21 09:45 Dose: 25 mg Documented by: Multivitamins ([facility]itamin Tab) [facility] Stop: 08/27/21 08:59 Last Admin: 07/28/21 09:45 Dose: 1 tab Documented by: Polyethylene Glycol (Polyethylene (Miralax) 17 Gm Pack) 17 gm PO DAILY PRN PRN Reason: Constipation Stop: 08/26/21 17:43 Spironolactone (Spironolactone 12.5 Mg Tab) 12.5 mg PO [facility] Stop: 08/27/21 08:59 Last Admin: 07/28/21 09:45 Dose: 12.5 mg Documented by: Torsemide (Torsemide 20 Mg Tab) 20 mg PO [facility] Stop: 08/27/21 08:59 Last Admin: 07/28/21 09:45 Dose: 20 mg Documented by: Umeclidinium [place] (Umeclidinium [place] 62.5mcg/Blister 7 Puffs/Inhaler) 1 puffs INH [facility] Stop: 08/27/21 08:59 Last Admin: 07/28/21 09:41 Dose: 1 puffs Documented by:
--- NOTE | 2021-07-29 06:19 | Electrocardiogram Report ---
Test Reason : Blood Pressure : / mmHG Vent. Rate : 067 BPM Atrial Rate : 093 BPM P-R Int : 000 ms QRS Dur : 152 ms QT Int : 464 ms P-R-T Axes : 000 -69 -74 degrees QTc Int : 490 ms Atrial fibrillation Left axis deviation Right bundle branch block T wave abnormality, consider inferolateral ischemia Abnormal ECG When compared with ECG of 27-JUL-2021 10:39, Vent. rate has decreased BY 42 BPM T wave inversion more evident in Inferolateral leads Confirmed by Zhou Irizarry ([id number]) on 07/29/2021 6:19:05 AM Referred By: Mitchell Nichols Confirmed By:Zhou Irizarry
[2021-07-29] MEDS: lisinopril 20 MG TAB PO SCH (08:51)
[2021-07-29] MEDS: METOPROLOL SUCC 25MG EXT REL TAB PO SCH (08:51)
[2021-07-29] MEDS: TORSEMIDE 20 MG TAB PO SCH (08:51)
[2021-07-29] MEDS: APIXABAN 5 MG TABLET PO SCH (08:51)
[2021-07-29] MEDS: DOXYCYCLINE HYCLATE 100 MG CAP PO SCH (08:51)
[2021-07-29] MEDS: SPIRONOLACTONE 12.5 MG TAB PO SCH (08:51)
[2021-07-29] MEDS: ASPIRIN 81 MG ECTAB PO SCH (08:51)
[2021-07-29] MEDS: UMECLIDINIUM BROMIDE 62.5MCG/BLISTER 7 PUFFS/INHALER INH SCH (08:51)
[2021-07-29] MEDS: MULTIVITAMIN TAB PO SCH (08:51)
[2021-07-29] MEDS: FLUTICASONE FUROATE 200MCG 14 PUFFS/INHALER INH SCH (08:52)
--- NOTE | 2021-07-29 13:17 | Hospitalist Progress Note ---
Date of Service July 29, 2021 Assessment & Plan (1) COPD exacerbation: Plan: Patient is 81-year-old male with PMH atrial fibrillation on Eliquis, chronic diastolic heart failure, COPD, HTN, MONIQUE presented to ER from PCPs office for shortness of breath and reported confusion. Patient with reported ongoing SOB with exertion, cough. Yesterday with onset myalgias, dizziness. PCP office today was confusion, SOB. Pt's with myalgias, rhinorrhea and dizziness, confusion as well. In ER no hypoxia, no leukocytosis. Negative COVID 19 PCR, Negative Influenza and RSV PCR. CXR: no acute disease Procalcitonin-normal at 0.78 Biofire pending -negative Recently treated outpatient on 07/21/21 for COPD exac with Prednisone taper x 8 days In ER reported pt had initial wheezing and received solumedrol 125mg IV and xopenex neb No current wheezing on exam Xopenex nebs prn Doxycycline Reassess if recurrent wheezing consider further steroids Delsym prn CBC, BMP in am-no acute findings Remains totally asymptomatic without any wheezing and/or cough or shortness of breath with clear chest He has had PT evaluation and recommended home He will be discharged home (2) Confusion: Plan: Found to be confused in PCP office today CT Head no acute intracranial findings UA and urine tox screen pending Carboxyhemoglobin WNL May be secondary to underlying illness Confusion seems to be resolved and is back to her his baseline (3) Atrial fibrillation with rapid ventricular response: Plan: History chronic atrial fibrillation anticoagulated on Eliquis Today in ER initial rate 109 down to 80's without further intervention Monitor on telemetry Continue Eliquis, metoprolol Rate is controlled (4) Chronic diastolic heart failure: Plan: History echo 08/2019 EF: 50-55%, grade 2 diastolic dysfunction, abnormal septal wall motion, atrial valve sclerosis without stenosis, moderate atrial enlargement Currently appears euvolemic Patient reported to ER doctor that he had not taken his home diuretics yesterday or today so patient was given IV Lasix 40 mg in ER Patient currently appears euvolemic Monitor I's and O's, low-sodium diet Continue torsemide, spironolactone No evidence of fluid overload (5) HTN (hypertension): Plan: Continue lisinopril (6) MONIQUE (obstructive sleep apnea): Plan: CPAP at bedtime DVT Prophylaxis On Eliquis Full Code as per discussion with pt Follows with Dr Nichols for routine care Discharge home this afternoon Admission and Anticipated Discharge Date Admission Date: July 27, 2021 Subjective 07/28/2021 The patient was seen and examined in medical telemetry unit He has been feeling much better and denies any significant symptoms He will get PT and OT evaluation prior to discharge 07/29/2021 The patient was seen and examined in medical telemetry unit He denies any symptoms since admission No respiratory symptoms and no signs and or symptoms of infection with clear chest Review of Systems Review of Systems: All systems reviewed and are unremarkable except as noted below Physical Exam Physical Exam: Sitting on a chair without any acute distress Constitutional: well developed, well nourished and + obese; not ill appearing Eyes: PERRL, conjunctivae normal, anicteric sclerae ENMT: external ear and nose normal, oropharynx normal Neck: trachea midline, no thyromegaly Respiratory: no respiratory distress Auscultation: + diminished lung sounds and + crackles (Minimal crackles at the bases) Cardiovascular: Rate/Rhythm: + irregularly irregular; not tachycardic Heart Sounds: normal S1 and normal S2; no murmur Extremities: + edema (Trace edema bilaterally) Gastrointestinal (Abdomen): Inspection/Auscultation: + abdomen distended and normal bowel sounds Percussion/Palpation: abdomen soft; abdomen nontender Musculoskeletal: No acute arthritis in any joint Neurologic: normal touch/pain/proprioception and moves all extremities Psychiatric: A+Ox3, euthymic affect Lymphatic: no cervical or axillary lymphadenopathy Results & Data Results & Data ([facility]) Vital Signs (Past 12 Hours) Vital Signs Temp Pulse Pulse Resp BP BP Pulse Ox 07/29/21 11:15 36.7 C 90 18 103/63 93 07/29/21 08:07 36.8 C 65 18 122/72 92 07/29/21 03:02 76 12 96 07/29/21 02:57 36.4 C L 77 20 127/79 95
--- NOTE | 2021-07-30 08:30 | Discharge Summary ---
Date of Service July 29, 2021 Admission HPI Per Admitting Provider Patient is 81-year-old male with PMH atrial fibrillation on Eliquis, chronic diastolic heart failure, COPD, HTN, MONIQUE presented to ER from PCPs office for shortness of breath and reported confusion. History obtained from patient and outside record review. Patient seen at PCPs office on 07/21/2021 for shortness of breath and was diagnosed with COPD exacerbation and was started on Arnuity Ellipta and prednisone taper x8 days. Today patient was with his at PCP appointment when he was found to be confused in the waiting room, short of breath and was reported to be walking into cooper. Patient was then seen for an acute visit as well and had reported dizziness and myalgias that started yesterday. He had temp of 37.8C was found to be in A. fib RVR with pulse 124, 93% on room air. Patient's with symptoms of dizziness, myalgias and rhinorrhea as well. There was concern for COVID-19 and patient was referred to ER. Here in ER patient is alert to person and place, confused with month and day. He did not remember going to PCPs office or his recent COPD exacerbation or treatment. Patient reports that his medications this morning. Patient states feeling short of breath with exertion that has been ongoing. He reports the past day has been having dizziness described as the room spinning and feeling achy. Denies falls, chest pain. Denies known fever/chills, diaphoresis, N/V/D/C, PARNELL, syncope, vision changes, neck pain, palpitations, hemoptysis, sore throat, choking, otalgia, rhinorrhea, abdominal pain, paresthesias, weakness, extremity weakness, extremity edema, rashes, urinary symptoms. History of COVID-19 vaccine on 05/27/2020, 06/17/2020 and 01/19/2021. Admission Exam Per Admitting Provider Physical Exam: General: no distress, obese Head: normocephalic, atraumatic Eyes: conjunctiva non-injected, anicteric ENT: normal inspection external ears, nose, mucous membranes moist Neck: supple, trachea midline Lungs: clear, no respiratory distress, no wheezing/rhonchi/rales currently CV: irregularly irregular, rate 88, no pretibial edema Abd: protuberant, normal BS, soft, non-tender Ext: no cyanosis, no calf tenderness Neuro: Alert, oriented to person, place. oriented to year only. no focal deficits noted, normal affect Skin: warm, dry Principal Diagnosis COPD exacerbation, no infection identified, atrial fibrillation with RVR, chronic diastolic heart failure Discharge Exam Sitting on a chair without any acute distress Constitutional well developed, well nourished and + obese; not ill appearing Eyes PERRL, conjunctivae normal, anicteric sclerae ENMT external ear and nose normal, oropharynx normal Neck trachea midline, no thyromegaly Respiratory no respiratory distress Auscultation: + diminished lung sounds and + crackles (Minimal crackles at the bases) Cardiovascular Rate/Rhythm: + irregularly irregular; not tachycardic Heart Sounds: normal S1 and normal S2; no murmur Extremities: + edema (Trace edema bilaterally) Gastrointestinal (Abdomen) Inspection/Auscultation: + abdomen distended and normal bowel sounds Percussion/Palpation: abdomen soft; abdomen nontender Neurologic normal touch/pain/proprioception and moves all extremities Psychiatric A+Ox3, euthymic affect Lymphatic no cervical or axillary lymphadenopathy Discharge Data Allergies Allergy/AdvReac Type Severity Reaction Status Date / Time lumiracoxib Allergy Severe swelling Verified 07/27/21 13:42 rofecoxib Allergy Unknown Unknown Verified 07/27/21 13:42 Consultations 07/27/21 14:00 ED Decision to Admit Stat Ordered Studies 07/27/21 15:02 CT head/brain wo con Stat Hospital Course (1) COPD exacerbation: Patient is 81-year-old male with PMH atrial fibrillation on Eliquis, chronic diastolic heart failure, COPD, HTN, MONIQUE presented to ER from PCPs office for shortness of breath and reported confusion. Patient with reported ongoing SOB with exertion, cough. Yesterday with onset myalgias, dizziness. PCP office today was confusion, SOB. Pt's with myalgias, rhinorrhea and dizziness, confusion as well. In ER no hypoxia, no leukocytosis. Negative COVID 19 PCR, Negative Influenza and RSV PCR. CXR: no acute disease Procalcitonin-normal at 0.78 Biofire pending -negative Recently treated outpatient on 07/21/21 for COPD exac with Prednisone taper x 8 days In ER reported pt had initial wheezing and received solumedrol 125mg IV and xopenex neb No current wheezing on exam Xopenex nebs prn Doxycycline Reassess if recurrent wheezing consider further steroids Delsym prn CBC, BMP in am-no acute findings Remains totally asymptomatic without any wheezing and/or cough or shortness of breath with clear chest He has had PT evaluation and recommended home He will be discharged home (2) Confusion: Found to be confused in PCP office today CT Head no acute intracranial findings UA and urine tox screen pending Carboxyhemoglobin WNL May be secondary to underlying illness Confusion seems to be resolved and is back to her his baseline (3) Atrial fibrillation with rapid ventricular response: History chronic atrial fibrillation anticoagulated on Eliquis Today in ER initial rate 109 down to 80's without further intervention Monitor on telemetry Continue Eliquis, metoprolol Rate is controlled (4) Chronic diastolic heart failure: History echo 08/2019 EF: 50-55%, grade 2 diastolic dysfunction, abnormal septal wall motion, atrial valve sclerosis without stenosis, moderate atrial enlargement Currently appears euvolemic Patient reported to ER doctor that he had not taken his home diuretics yesterday or today so patient was given IV Lasix 40 mg in ER Patient currently appears euvolemic Monitor I's and O's, low-sodium diet Continue torsemide, spironolactone No evidence of fluid overload (5) HTN (hypertension): Continue lisinopril (6) MONIQUE (obstructive sleep apnea): CPAP at bedtime DVT Prophylaxis On Eliquis Full Code as per discussion with pt Follows with Dr Nichols for routine care Discharge home this afternoon Total Time Total Time Spent Total Time Spent (In Minutes): 35 monutes Discharge Plan Discharge Items Patient Disposition: Home - Self-Care Reason For Visit: COPD EXAC Discharge Diagnosis: COPD exacerbation, no infection identified, atrial fibrillation with RVR, chronic diastolic heart failure Condition on Discharge: Good Activity: Resume your previous activity Non-emergency contact: Primary Care Provider Call non-emergency contact if: you have any medication questions and your symptoms worsen Follow-up/Referrals: Mitchell Nichols DO [Primary Care Provider] - (Date & Time 08/04/2021 12:00 PM Provider Mitchell Nichols DO Department [facility] ) Diet: Heart Healthy Addtl Attending Provider Instructions: Please take precautions to avoid falls Use inhalers for wheezing as advised Keep taking her medications Please have follow-up appointments with your healthcare providers Pending Studies at Discharge: No Stand-Alone Forms: My [facility], Smoking Cessation Medications and DC Order Prescriptions: Continued multivitamin Tablet 1 tab PO QAM RF: 0 albuterol sulfate 90 mcg/actuation HFA aerosol inhaler 2 puff INHALATION Q4 PRN (Reason: Shortness Of Breath) RF: 0 Eliquis 5 mg Tablet 5 mg PO BID 30 Days Qty: 60 RF: 3 lisinopril 20 mg Tablet 20 mg PO QAM RF: 0 torsemide 20 mg Tablet 20 mg PO QAM RF: 0 meclizine 25 mg tablet 25 mg PO TID PRN (Reason: Dizziness) RF: 0 metoprolol succinate 25 mg tablet extended release 24 hr 25 mg PO QAM RF: 0 Spiriva Respimat 2.5 mcg/actuation mist 2 inh INHALATION QAM RF: 0 spironolactone 25 mg Tablet 12.5 mg PO QAM RF: 0 aspirin [Aspirin Low Dose] 81 mg Tablet,Delayed Release (Dr/Ec) 81 mg PO QAM RF: 0 acetaminophen [Tylenol] 325 mg Tablet 325 mg PO QID PRN (Reason: Pain) RF: 0 prednisone 20 mg tablet 20 mg PO UD RF: 0 Arnuity Ellipta 200 mcg/actuation blister with device 1 inh INHALATION DAILY RF: 0 Discharge Orders: Discharge Order (Routine); Ordered 07/29/21 Ordered By: Nancy Ma Admission Data Admit Date/Time: 07/27/21 15:24 Attending Provider: Nancy Ma Admit Provider: Dylon Lott Primary Care Provider: Mitchell Nichols Other Providers: Dylon Lott Other Interventions: Discharge Summary Assessment (RN) Last Done: 07/29/21 14:03
== END 2021-07-29 14:56 | disposition home or self-care (01) | DRG 190 ==
LOC: ED 10:19 → EDINP 15:24 → SUATTDRO 15:24 → 2N 17:43